=== PATIENT | male | born 1935 | race Caucasian/White ===

== ENCOUNTER 2016-08-01 13:40 | Emergency (ER) | payer OTHER ==
[~2016-08-01] VITALS: Ht 172.7 cm; Wt 97.5 kg
[~2016-08-01 13:40] MED LIST: ATIVAN0.5 M1 PO; ATIVAN0.5 MG PO; BENICAR HCT 201 EACH PO; BUSPAR PO; BUSPAR30 MG; BUSPIRONE HCL10 MG PO; CARDIO TAB PO; CARDIO TABS; CITRUCEL CAPLET1 TA1 PO; CO Q-10150 MG PO; CVS FISH OIL 11 EAC3 PO; ENDODAN PO; GLUCOSAMINE-MS1 EAC3 PO; HYDROCODON-ACE1 EA11 PO; HYDROCODON-ACE1 EAC5 PO; HYDROCODON-ACE1 EACH PO; IBUPROFEN 200200 M1 PO; LOSARTAN-HCTZ1 EACH PO; NORCO 10-325 T1 EACH PO; SERTRALINE HCL100 MG PO; SIMVASTATIN40 MG PO; VENLAFAXIN75 MG/1 T2 PO; VERAPAMIL HCL120 M1 PO; VERAPAMIL HCL40 MG PO; VERAPAMIL2.5 MG/1 M
[2016-08-01 17:00] LABS: URINE BILIRUBIN NEGATIVE (Negative); URINE BLOOD 2+ (Negative); URINE COLOR YELLOW; URINE GLUCOSE-RANDOM* NEGATIVE (Negative); URINE KETONES NEGATIVE (Negative); URINE NITRITE NEGATIVE (Negative); URINE PROTEIN (DIPSTICK) TRACE (Negative); URINE SPECIFIC GRAVITY 1.025 (1.003-1.035); URINE UROBILINOGEN 0.2 E.U./dl (0.2-1.0)
[2016-08-01 17:04] LABS: SQUAMOUS 4-10 Moderate /LPF (0-3)
[2016-08-01 17:05] LABS: BACTERIA None Seen /HPF (None Seen); CASTS None Seen /LPF (None Seen); CRYSTALS None Seen /LPF (None Seen); URINE RBC 3-10 Few /HPF (0-2); URINE WBC 0-5 Rare /HPF (0-5)
[2016-08-01 17:11] LABS: AMP/METHAMP Negative (Negative); BARBITURATES Negative (Negative); BENZODIAZEPINES Negative (Negative); COCAINE Negative (Negative); METHADONE Negative (Negative); OPIATES Negative (Negative); PCP Negative (Negative); THC Negative (Negative)
== END 2016-08-01 17:43 | disposition home or self-care (01) ==
LOC: ER 13:40
PROVIDERS: Physician Assistant
DX: F41.0 Panic disorder [episodic paroxysmal anxiety] (principal); Z87.891 Personal history of nicotine dependence

== ENCOUNTER 2016-11-27 21:29 | Emergency (ER) | payer OTHER ==
[~2016-11-27] VITALS: Ht 180.3 cm; Wt 158.8 kg
--- NOTE | ~2016-11-27 | EKG ---
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
[2016-11-27 22:26] LABS: ABSOLUTE NEUTROPHILS 8.7 thou/uL (1.4-8.2); BASOPHILS 0.3 % (0.0-2.0); EOSINOPHILS 0.3 % (0.0-3.0); HEMATOCRIT 46.9 % (42.0-52.0); HEMOGLOBIN 15.8 gm/dL (14.0-18.0); LYMPHOCYTES 14.2 % (24.0-44.0); MANUAL DIFF NO; MCH 31.1 pg (26.0-34.0); MCHC 33.7 g/dL (28.0-37.0); MCV 92.3 fL (80.0-100.0); MONOCYTES 5.7 % (1.0-8.0); PLATELET COUNT 185 thou/uL (150-400); POLYS 79.5 % (36.0-66.0); RBC 5.09 mil/uL (4.50-6.00); RDW 14.5 % (10.5-14.5)
[2016-11-27 22:44] LABS: ALBUMIN 3.6 g/dL (3.4-5.0); ALKALINE PHOSPHATASE 110 U/L (46-116); BUN 16 mg/dL (7-18); CALCIUM 9.5 mg/dL (8.5-10.1); CO2 28 mmol/L (21-32); GLUCOSE 143 mg/dL (74-106); SGOT 26 U/L (15-37); SGPT 28 U/L (30-65); TOTAL BILIRUBIN 0.6 mg/dL (<0.1-1.0); TOTAL PROTEIN 7.8 g/dL (6.4-8.2); TROPONIN-I < 0.04 ng/mL (<0.04-0.07)
[2016-11-27 22:58] LABS: ANION GAP 7 mmol/L (7-16); CHLORIDE 101 mmol/L (98-107); POTASSIUM 3.4 mmol/L (3.5-5.1); SODIUM 136 mmol/L (136-145)
== END 2016-11-28 00:07 | disposition home or self-care (01) ==
LOC: ER 21:29
PROVIDERS: Nurse Practitioner Family
DX: F41.0 Panic disorder [episodic paroxysmal anxiety] (principal); F17.210 Nicotine dependence, cigarettes, uncomplicated

== ENCOUNTER → 2018-08-01 | Outpatient (CLI) | payer OTHER | LOC: CAT 09:10 | PROVIDERS: Internal Medicine Cardiovascular Disease | DX: I71.4 Abdominal aortic aneurysm, without rupture (principal); M47.816 Spondylosis without myelopathy or radiculopathy, lumbar region; J98.11 Atelectasis ==

== ENCOUNTER → 2018-08-14 | Outpatient (CLI) | payer OTHER ==
[~2018-08-14] VITALS: Ht 182.9 cm; Wt 117.9 kg
[~2018-08-14] MED LIST changes: +ASPIR 8181 MG PO; +CO Q-1075 MG PO; +COQ-10100 MG PO; +CYMBALTA60 MG PO; +FISH OIL 1,001000 M2 PO; +HYZAAR 50-12.51 EACH PO; +LIPITOR 20 MG T20 M1 PO; +PAXIL40 MG PO; +PRILOSEC OTC20 MG PO; +TRAMADOL 50 MG50 MG PO; +TUMS PO; +VENTOLIN HFA 1818 GM INH; +VITAMIN D31000 UNIT PO; +VITAMIN D3400 UNIT PO
--- NOTE | ~2018-08-14 | HC ---
[facility] [place] [address] CONSULTATION Name: ROMY BAGLEY Room #: REG YAYA Schwartz.#: [id number] Admission: 08/14/18 ������������������ Attend Phys: Sam Rutherford MD, Discharge: ������������������ Date of : 33 Report #: [id number] THIS REPORT FOR: //name// CC: Juan Diego Rutherford DATE OF SERVICE: 08/14/2018 We were asked by Dr. Medel to see the patient. The patient is an 82-year-old with an infrarenal abdominal aortic aneurysm that is approaching 6 cm. This has been followed for years. 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 This aneurysm has been asymptomatic. PERSONAL MEDICAL HISTORY: Significant for hypertension, hyperlipidemia, chronic low back pain, possible CVA and the patient is status post lumbar fusion in the past. SOCIAL HISTORY: The patient is , with 3 children. No tobacco, no alcohol. FAMILY HISTORY: Mother with Alzheimer's in her 80s. Father from the abdominal aortic aneurysm. ALLERGIES: None. MEDICATIONS: At home are Cymbalta, Paxil, Hyzaar, Ultram, Ventolin, Reclast, lorazepam, atorvastatin, vitamin D, aspirin, fish oil, CoQ10. REVIEW OF SYSTEMS: GENERAL: The patient denies chronic medical problems. CONSTITUTIONAL: No fever or chills. EYES: No eye pain, visual change. RESPIRATORY: Occasional dyspnea related to anxiety. No cough. CARDIAC: Denies chest pain. GASTROINTESTINAL: No abdominal pain, nausea, vomiting. MUSCULOSKELETAL: Chronic low back pain. SKIN: No rash or infection. NEUROLOGIC: No motor or sensory dysfunction. PHYSICAL EXAMINATION: GENERAL: The patient is lying in bed after his arteriogram. VITAL SIGNS: Blood pressure 97/59, heart rate 71, respiratory rate 16. HEENT: No scleral icterus, no arcus, normocephalic. Pupils are round and equal. No oropharyngeal issues seen. [facility] [address] [place] [address] CONSULTATION Name: ROMY BAGLEY [place] Room #: REG [facility].#: [id number] Admission: 08/14/18 ������������������ Attend Phys: Sam Rutherford MD, Discharge: ������������������ Date of : 33 Report #: [id number] NECK: No mass, no bruit. CHEST: Clear. HEART: Rhythm regular. ABDOMEN: Soft. EXTREMITIES: No clubbing, cyanosis or edema. 2+ femoral pulses bilaterally. NEUROLOGIC: No obvious motor or sensory dysfunction. MUSCULOSKELETAL: No asymmetry or deformity. I reviewed the arteriographic findings with the patient and also discussed the risks and details of stent graft implant. These include but not limited to bleeding, infection, anesthesia risks, and of course problems with the graft itself, the need for followup. Visualization was stressed. Open implant was compared and contrasted with stent graft implant. The patient understands all of this and wishes to proceed. We will schedule the patient for elective stent graft implant with Dr. Medel. Thank you for the consult. ��������������������������������������������� ���������������������������������������� By: ��������������������������������������������� 0945 0309 Mihir Hastings MD /nt
[2018-08-14 07:39] VITALS: BP 130/84
[2018-08-14 07:46] LABS: HEMOGLOBIN 15.8 gm/dL (14.0-18.0); MCH 31.6 pg (26.0-34.0); MCHC 33.6 g/dL (28.0-37.0); MCV 93.9 fL (80.0-100.0); RBC 5.01 mil/uL (4.50-6.00); RDW 14.3 % (10.5-14.5); WBC 9.4 thou/uL (4.0-11.0)
[2018-08-14 07:59] LABS: CALCIUM 9.1 mg/dL (8.5-10.1); CREATININE 1.1 mg/dL (0.7-1.3)
--- NOTE | 2018-08-14 09:56 | EKG ---
[place] [address] [facility] [place] [address] ELECTROCARDIOGRAM REPORT Name: ROMY BAGLEY Room #: REG [facility]#: [id number] ������������������ Admission: 08/14/18 ������������������ Attend Phys: Sam Rutherford MD, Discharge: ������������������ Date of : 33 Report #: [id number] ����������������������������������������������������������������� [id number] THIS REPORT FOR: //name// [facility] Test Date: 2018-08-14 Test Time: 07:28:43 Pat Name: ROMY BAGLEY Department: Room: Gender: M Microscopist: MARIJA : 1935 Requested By: Sam Rutherford Order Number: [id number] MD: Levy Alcala Measurements Intervals [place] Rate: 72 P: 68 RI: 179 QRS: 54 QRSD: 93 T: 73 QT: 421 QTc: 461 Interpretive Statements Sinus rhythm Nonspecific ST segment abnormality Compared to ECG 11/27/2016 22:16:33 No significant change was found Electronically Signed On 08-14-2018 9:55:55 CDT by Levy Alcala [email or web address] ��������������������������������������������� <ELECTRONICALLY SIGNED> ���������������������������������������� By: Levy Alcala MD, [facility] ��������������������������������������������� 08/14/1855 7 7 Levy Alcala MD, [facility] /EPI
--- NOTE | 2018-08-19 12:08 | CATHLAB ---
[facility] [address] [place] [address] INVASIVE PROCEDURE REPORT Name: ROMY BAGLEY Room #: REG [facility] [id number] ������������� Admission: 08/14/18 ������������� Attend Phys: Sam Rutherford, Discharge: ��� ������������� ��� Date of : 31 Date of Service: 08/19/18 1208 �� Report #: [id number] �������� ��������������������������������������������[id number] THIS REPORT FOR: //name// APPROVED REPORT Study performed: 08/14/2018 07:41:14 Patient Details Patient Status: Out-Patient Room #: The patient is a 82 year-old male Event Personnel Sam Rutherford Patrol Sergeant, Rex Mejía RN, Zeny, Marcy Monitor, Rodney Kahn RTR Scrub, Agustín Jackson RTR X-Ray Tech Procedures Performed Art Access - R femoral artery* 42519 Initial Mod Sed Same Phys/QHP Gr5y 208988 60310 Mod Sed Same Phys/QHP Ea 956652 Left Heart Cath w/or w/o Coronaries [id number] [facility] Hemostasis with Manual pressure Indication Chest pain Procedure Narrative The patient was brought electively to the Cardiac Catheterization Laboratory and was prepped and draped in a sterile manner. The Right Groin^ was infiltrated with subcutaneous anesthesia. A PINNACLE 6FR Sheath #[id number] sheath was inserted into the RFA^. Coronary angiography was performed using coronary diagnostic catheters. The right coronary system was accessed and visualized with a JR 4 catheter. The left coronary system was accessed and visualized with a JL 4 catheter. The left ventricle was accessed and visualized with a Pigtail catheter. Left ventriculogram was performed in GOMEZ projection. Hemostasis was obtained with manual pressure following sheath removal without any complications. The patient tolerated the procedure well and there were no complications associated with the procedure. There was no hematoma. Intraoperative Conscious Sedation Sedation start time: 08:29 Case end Time: 09:52 Fentanyl 250 mcg Versed 3 mg [facility] [place] [address] INVASIVE PROCEDURE REPORT Name: ROMY BAGLEY Room #: REG [facility]#: [id number] ������������� Admission: 08/14/18 ������������� Attend Phys: Sam Rutherford, Discharge: ��� ������������� ��� Date of : 31 Date of Service: 08/19/18 1208 �� Report #: [id number] �������� ��������������������������������������������[id number] Fluoro Time: 2.33 minutes Dose: DAP 4917.00 cGycm2 542 mGy Contrast Type and Amount: Visipaque 160 ml Hemodynamics The aortic pressure is 124/71 mmHg with a mean of 96 mmHg. The left ventricular pressure is 121/15 mmHg with a mean of mmHg. Conclusion #1 normal left ventricular size and systolic function EF 60% #2 long left main free of disease giving rise to LAD and circumflex #3 the LAD is mildly disease at type I stops short of the apex no significant occlusive disease #4 nondominant circumflex with mild irregularity #5 large dominant right coronary artery which is widely patent. Recommendations and plan: Continue aggressive risk factor modification. No indication for coronary intervention. ��������������������������������������������� <ELECTRONICALLY SIGNED> ���������������������������������������� By: Sam Rutherford MD, [facility] ��������������������������������������������� 08/19/18 1208 1208 1208 Sam Rutherford MD, FAC /INF
== END | disposition home or self-care (01) ==
LOC: CATH 06:49
PROVIDERS: Internal Medicine Cardiovascular Disease
DX: I25.10 Atherosclerotic heart disease of native coronary artery without angina pectoris (principal); K55.1 Chronic vascular disorders of intestine; I70.1 Atherosclerosis of renal artery; I71.4 Abdominal aortic aneurysm, without rupture; I10 Essential (primary) hypertension; E78.00 Pure hypercholesterolemia, unspecified; E78.5 Hyperlipidemia, unspecified; M54.5 Low back pain; G89.29 Other chronic pain; F41.9 Anxiety disorder, unspecified; E66.09 Other obesity due to excess calories; Z79.899 Other long term (current) drug therapy; Z79.82 Long term (current) use of aspirin; Z98.41 Cataract extraction status, right eye; Z98.42 Cataract extraction status, left eye; Z82.49 Family history of ischemic heart disease and other diseases of the circulatory system; Z98.890 Other specified postprocedural states; Z86.73 Personal history of transient ischemic attack (TIA), and cerebral infarction without residual deficits

== ENCOUNTER 2018-08-30 05:42 | Inpatient (IN) | payer OTHER ==
[2018-08-22 11:01] LABS: ABSOLUTE NEUTROPHILS 4.4 thou/uL (1.4-8.2); BASOPHILS 0.7 % (0.0-2.0); EOSINOPHILS 1.4 % (0.0-3.0); HEMATOCRIT 45.2 % (42.0-52.0); HEMOGLOBIN 15.3 gm/dL (14.0-18.0); LYMPHOCYTES 30.3 % (24.0-44.0); MCH 31.7 pg (26.0-34.0); MCHC 33.7 g/dL (28.0-37.0); MCV 94.1 fL (80.0-100.0); MONOCYTES 8.7 % (1.0-8.0); PLATELET COUNT 196 thou/uL (150-400); POLYS 58.9 % (36.0-66.0); RBC 4.81 mil/uL (4.50-6.00); RDW 14.2 % (10.5-14.5); WBC 7.5 thou/uL (4.0-11.0)
[2018-08-22 11:08] LABS: URINE BILIRUBIN NEGATIVE (Negative); URINE BLOOD TRACE (Negative); URINE CLARITY CLEAR; URINE COLOR YELLOW; URINE GLUCOSE-RANDOM* NEGATIVE (Negative); URINE KETONES NEGATIVE (Negative); URINE LEUKOCYTES-REFLEX NEGATIVE (Negative); URINE NITRITE-REFLEX NEGATIVE (Negative); URINE PROTEIN (DIPSTICK) NEGATIVE (Negative); URINE UROBILINOGEN 0.2 E.U./dl (0.2-1.0)
[2018-08-22 11:15] LABS: ALBUMIN 3.3 g/dL (3.4-5.0); CALCIUM 9.2 mg/dL (8.5-10.1); POTASSIUM 4.1 mmol/L (3.5-5.1); TOTAL BILIRUBIN 0.3 mg/dL (<0.1-1.0)
[2018-08-22 11:16] LABS: APTT 26.9 Seconds (24.5-32.8); PROTIME 10.1 Seconds (9.3-11.4)
--- NOTE | 2018-08-22 13:03 | EKG ---
[address] [address] ELECTROCARDIOGRAM REPORT Name: ROMY BAGLEY Room #: PRE [facility]#: [id number] ������������������ Admission: ������������������ Attend Phys: Mihir Hastings MD Discharge: ������������������ Date of : 33 Report #: [id number] ����������������������������������������������������������������� [id number] THIS REPORT FOR: //name// [facility] Test Date: 2018-08-22 Test Time: 10:27:11 Pat Name: ROMY BAGLEY Department: Room: Gender: High Lighter: Serg DALLAS : 1935 Requested By: Mihir Hastings Order Number: [id number] MD: Levy Alcala Measurements Intervals [place] Rate: 75 P: -27 PA: 202 QRS: 55 QRSD: 89 T: 50 QT: 393 QTc: 439 Interpretive Statements Sinus rhythm Atrial premature complex Compared to ECG 08/14/2018 07:28:43 Atrial premature complex(es) now present Electronically Signed On 08-22-2018 13:03:24 CDT by Levy Alcala [email or web address] ��������������������������������������������� <ELECTRONICALLY SIGNED> ���������������������������������������� By: Levy Alcala MD, [facility] ��������������������������������������������� 08/22/18 1303 1027 26 Levy Alcala MD, FACC /EPI
[2018-08-30] VITALS (19 sets, daily range): BP systolic 94–127; BP diastolic 44–74
[~2018-08-30] VITALS: Ht 175.3 cm; Wt 115.7 kg
--- NOTE | ~2018-08-30 | O ---
[facility] [place] [address] OPERATIVE REPORT Name: ROMY BAGLEY Room #: 150-4 ADM IN M.R.#: [id number] Admission: 08/30/18 ������������������ Attend Phys: Mihir Hastings MD Discharge: ������������������ Date of : 33 Report #: [id number] THIS REPORT FOR: //name// CC: Juan Diego Hastings DATE OF SERVICE: 08/30/2018 PREOPERATIVE DIAGNOSIS: Abdominal aortic aneurysm. PREOPERATIVE DIAGNOSIS: Abdominal aortic aneurysm. OPERATION: Implant of stent graft for infrarenal abdominal aortic aneurysm with intraoperative arteriograms. SURGEON: Dr. Mihir Hastings and DR. Agusto Medel. GUIDANCE ADVISER: GILDA Garner. ANESTHESIA: General. INDICATIONS: The patient is an 82-year-old with an infrarenal abdominal aortic aneurysm that is approaching 6 cm in size. The patient has two left renal arteries, but there appears to be satisfactory neck for stent graft implant and the distal anatomy is favorable as well. FINDINGS AND TECHNIQUE: After general anesthesia was established, incisions were made in each groin to expose the common femoral artery. A 10,000 units of heparin were given. On each side, the arterial needle was placed followed by J wire and 5-Greek introducer. Through this, the long J wire, Berenstein catheter and then Ivonne wire was placed. On each side, the Ivonne wire was used to place the large [place] introducer through a femoral artery cutdown on the right side. A 16-Greek sheath was placed over the dilator and on the left side, a 12-Greek sheath was placed. It should be mentioned that 10,000 units of heparin were given at the outset and 1000 units was given at the hour richard. Through the right side, the 23 mm x 14.5 mm x 14 cm trunk was placed. Through the left side, a visceral catheter was placed in the lowest renal artery and this was used as our proximal landing zone marker. The stent was opened and we felt that it was in satisfactory condition. The proximal end of the stent was deployed, such that the contralateral gate could be accessed through the left side. Once the gate was accessed, good position was ascertained with the pigtail spin technique. [facility] [address] [place] [address] OPERATIVE REPORT Name: ROMY BAGLEY Room #: 150-4 ADM IN M.R.#: [id number] Admission: 08/30/18 ������������������ Attend Phys: Mihir Hastings MD Discharge: ������������������ Date of : 33 Report #: [id number] Through the 12-Greek introducer on the left, a sheath shot was taken with contrast to demonstrate the takeoff of the hypogastric arteries. With this information, we selected a 16 mm x 9.5 cm contralateral limb and this was deployed. On the right side, the sheath shot was taken as well to illustrate the hypogastric artery takeoff and using this information, we finished deploying the main component, moving it up slightly as we proceeded to land just above the hypogastric takeoff. With both components deployed, then the [place] balloon was used to fully dilate the landing zone proximally and the landing zone for the contralateral gate and component and then the rest of the main component. An arteriogram was taken through the pigtail catheter and this showed good position of the graft, but there was a small type 1 leak. This led us to place a 23 mm x 3.3 cm cuff. This was landed just proximal to the initial graft, but below the renal artery. Once again, the compliant balloon was used to fully deploy the cuff and to iron out any pleat in the proximal component. A final arteriogram was taken with the pigtail catheter and this showed no evidence of leak and good position of the graft. With this information, the pigtail catheter was removed. Dilators were replaced stiff wires into the sheaths on each side. Sheaths and dilators were removed and then the guidewires were removed. No drop in pressure was seen. On each side, the arteriotomy was closed with interrupted Prolene. Once this was done, flow was reestablished and protamine was given to reverse the heparin. Hemostasis was ascertained and the wounds were closed in layers. The patient was taken to the recovery area in good position. Strong dorsalis pedis pulses were palpable before this transfer. All counts reported as correct. ��������������������������������������������� ���������������������������������������� By: ��������������������������������������������� 1640 1727 Mihir Hastings MD /lorena
--- NOTE | ~2018-08-30 | HC ---
[facility] [place] [address] CONSULTATION Name: ROMY BAGLEY Room #: 216-P [facility] IN M.R.#: [id number] Admission: 08/30/18 ������������������ Attend Phys: Mihir Hastings MD Discharge: 09/01/18 ������������������ Date of : 33 Report #: [id number] THIS REPORT FOR: //name// CC: Juan Diego Hastings DATE OF SERVICE: 09/01/2018 HISTORY OF PRESENT ILLNESS: The patient is an 82-year-old white male with an infrarenal abdominal aortic aneurysm approximately 6 cm. He was admitted to [facility] and underwent stent grafting on 08/30/2018. The patient has a prior history of cerebrovascular accident 5-6 years ago with some residual left-sided weakness. He is a premorbid front-wheeled versus 4-wheeled walker ambulator. He has had some problems noted with gait and balance issues and is needing more assistance as far as ADLs and self care than he did previously. With the functional decline, we have been consulted regarding rehabilitation issues. PAST MEDICAL HISTORY: Includes hypertension, elevated lipids, exogenous obesity, bilateral carotid surgery, obstructive sleep apnea and there is note of cerebrovascular accident 5-6 years ago with some residual left-sided weakness. He indicated the left-sided weakness was more involving the face actually than the arm or leg. He has also had a prior lumbar fusion on 12/20/2015. MEDICATIONS: Please see the full medication listing. FAMILY HISTORY: Mother had Alzheimer's. Father actually from an abdominal aortic aneurysm. ALLERGIES: None. SOCIAL HISTORY: , lives with . Single story house, used a front-wheeled walker, 4 steps to get in. He also has a front-wheeled walker. just had gallbladder surgery approximately a week ago and would have difficulty assisting him. She is unable to get him up if he has a fall. ALLERGIES: No known drug allergies. REVIEW OF SYSTEMS: He notes with his left facial weakness, he is unable to whistle. Denies any problems swallowing, however. He indicates that is not Swift's palsy. He denies any fever or chills. No chest pain, shortness of breath or abdominal discomfort. No focal extremity pain complaints. He has had multiple falls in the shower prior to admission. He attributed this to the soap and slipperiness while in the shower. PHYSICAL EXAMINATION: [facility] [address] [place] [address] CONSULTATION Name: YUDIROMY E Room #: 216-P DIS IN M.R.#: [id number] Admission: 08/30/18 ������������������ Attend Phys: Mihir Hastings MD Discharge: 09/01/18 ������������������ Date of : 33 Report #: [id number] GENERAL: An 82-year-old white male in no obvious distress. He has exogenous obesity. VITAL SIGNS: His temperature is 97.5, pulse 82, respirations 20, and blood pressure 128/63. NEUROLOGIC: He is alert, pleasant. He is not on any oxygen. Facies revealed a left facial droop with depressed left nasolabial fold. EOMs are full. No obvious visual field neglect to confrontation. He is able to verbalize quite well. On evaluation of his groin. The areas are dressed from the stenting. He has functional range of motion of both upper extremities. Strength is a grade 4/5. Coordination is reasonably good with [id number]-[id number] and fine finger dexterity in his lower extremities. There is no calf swelling, functional range of motion, strength is grade 4+ to 4/5. DTRs are trace. There is no clonus. Functionally, he is mod assist with sit to stand, ambulated 15 feet mod assist with a front-wheeled walker. ASSESSMENT: An 82-year-old white male with the following problem list: 1. Medical complexity with generalized debilitation. 2. Infrarenal abdominal aortic aneurysm, status post stent grafting 08/30/2018. 3. 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 4. Functional mobility and activities of daily living decline. 5. Lumbar fusion, 2016. 6. Exogenous obesity. 7. Hypertension. 8. Elevated lipids. 9. Obstructive sleep apnea. 10. Bilateral carotid surgery. PLAN: The patient is a candidate for an acute in-hospital inpatient rehabilitation stay. Complained on transfer to the [address] [place] [address] acute inpatient rehab [facility] when medically cleared and bed available. He does have the multiple medical comorbidities as noted above. He has tolerance for therapies and has appropriate discharge goals back to the home setting. ADDENDUM: His height is 5 feet 9 and his weight, last recorded was 255 pounds. ��������������������������������������������� ���������������������������������������� By: ��������������������������������������������� 1450 0139 Agusto Novoa MD /nt
--- NOTE | 2018-08-30 19:25 | NUR ---
1755 ASSUMED PT CARE, ARRIVED FROM PACU VIA RN AND TRANSPORT. PT A/OX4, VITAL SIGNS STABLE, 2LNC, NO GTTS, ARTLINE SLIGHTLY POSITIONAL, ARM BOARD APPLIED, SEEMS TO BE FUNCTIONING BETTER. ALL DRESSING C/D/I. ATTEMPTED TO LOCATE HOLLY IN WAITING ROOM, PT SAID SHE PROBABLY WENT TO EAT. WILL MONITOR CLOSELY.
[2018-08-31] VITALS (35 sets, daily range): BP systolic 83–120; BP diastolic 38–67
[2018-08-31 06:30] LABS: HEMATOCRIT 37.6 % (42.0-52.0); HEMOGLOBIN 12.6 gm/dL (14.0-18.0); MCH 31.6 pg (26.0-34.0); MCHC 33.4 g/dL (28.0-37.0); MCV 94.7 fL (80.0-100.0); RBC 3.97 mil/uL (4.50-6.00); RDW 14.2 % (10.5-14.5); WBC 11.4 thou/uL (4.0-11.0)
[2018-08-31 06:38] LABS: CALCIUM 7.9 mg/dL (8.5-10.1); CREATININE 0.9 mg/dL (0.7-1.3); POTASSIUM 4.5 mmol/L (3.5-5.1)
--- NOTE | 2018-08-31 07:38 | NUR ---
PT RESTED WELL, NO ACUTE CHANGES. PAIN WELL CONTROLLED, BILATERAL GROIN WITH DRESSING C/D/I, NO HEMATOMA OR S/S BLEEDING. FISHER WITH ADEQUATE OUTPUT. PT ON 2L O2 BY NASAL CANNULA, MAINTAINING SATS >95%.
--- NOTE | 2018-08-31 17:00 | NUR ---
PATIENT HAS BEEN ALERT AND ORIENTED, FORGETFUL AND CONFUSED BUT EASILY REORIENTABLE. VITALS STABLE AND DENIES PAIN. A-LINE AND FISHER CATH D'CD EARLIER TODAY. UP TO THE CHAIR WITH WALKER AND GAIT BELT AND MOD ASSISTANCE. TOLERATING DIET WELL W/O NAUSEA. BILATERAL GROIN SITES WITH DRESSINGS C/D/I. ORDERS RECEIVED TO TRANSFER TO CCU. PATIENT TRANSFERRED TO RM 216, NO BELONGINGS WITH PATIENT. PATIENT'S SPOUSE NOTIFIED VIA TELEPHONE.
--- NOTE | 2018-08-31 17:35 | NUR ---
ASSUMED CARE OF PT AROUND 1630. PT ALERT AND ORIENTED TIMES FOUR, WITH PERIODS OF CONFUSION. VSS, SR ON TELE. PT GROIN SITES SOFT C/D/I. PT DENIES PAIN/SOA. PT UP SITTING IN THE CHAIR. POSSIBLE PLAN FOR DISCHARGE HOME TOMORROW. PT PROGRESSING TOWRADS POC GOALS.
[2018-09-01 05:11] VITALS: BP 146/71
--- NOTE | 2018-09-01 05:43 | NUR ---
ASSUMED PT CARE AT 1900 WITH NO SIGN OF DISTRESS NOTED IN PT. PT IS ALERT BUT CONFUSED. NO FAMILY AT BEDSIDE. ASSESSMENT COMPLETED AND CHARTED. PT IS CONFUSED FOR MOST OF THE NIGHT. SCHEFDULED MEDS ADMINISTERED TO PT. PT TOLERATED PO INTAKE, DENIES ANY FURTHER NEEDS AT THIS TIME.
[2018-09-01 08:08] VITALS: BP 128/63
--- NOTE | 2018-09-01 14:10 | NUR ---
Case opened to follow for dc planning. Filter Bed Placer visited with the pt and spouse at bedside. The pt lives at home with his spouse. They have 4 steps to enter their home then everything is on the main level. Pt no longer drives and uses a rwalker for gait. He is normally indep with transfers and gait within the home using the rwalker. They both acknowledge increased weakness and report that the pt has had several falls recently at home. Pt has rt facial droop and his reports that he had a minor stroke 5-6 years go but the pt reports he noticed it seemed worse about 6 months ago. Therapy evals and care team recommendations noted for acute rehab eval. Options for rehab discussed including [facility], [facility] or [facility]. Both are receptive and prefer to go to [facility] if accepted. Case discussed with [facility]. [facility] may have a bed available this afternoon. Will follow.
--- NOTE | 2018-09-01 16:52 | NUR ---
ASSESSMENT DOCUMENTED. PT ALERT AND ORIENTED. VSS. UP IN THE CHAIR THIS AM. EVALUATED BY PT AND OT. ORDERS GIVEN TO TRANSFER PT TO [address] [place] [address] REHAB. NOTIFIED. REPORT CALLED IN TO OLIVIA BUSTAMANTE. PT LEFT THE UNIT ACCOMPANIED BY THE .
== END 2018-09-01 16:54 | DRG 269 ==
LOC: TBA 05:42 → ICU 05:42 → PRE 05:59 → ICU 17:34 → 2N 08-31 16:56 → ENTRNSPT 09-01 16:28 → 2N 09-01 16:54
PROVIDERS: Physician Assistant; ADMIT Surgery Vascular Surgery
PROC: B4181ZZ Fluoroscopy of Bilateral Renal Arteries using Low Osmolar Contrast (ICD-10-PCS; principal; 2018-08-30)
PROC: 04V03DZ Restriction of Abdominal Aorta with Intraluminal Device, Percutaneous Approach (ICD-10-PCS; principal; 2018-08-30)
DX: I71.4 Abdominal aortic aneurysm, without rupture (principal); I69.354 Hemiplegia and hemiparesis following cerebral infarction affecting left non-dominant side; G47.33 Obstructive sleep apnea (adult) (pediatric); I10 Essential (primary) hypertension; E66.09 Other obesity due to excess calories; Z68.37 Body mass index [BMI] 37.0-37.9, adult; Z81.8 Family history of other mental and behavioral disorders; Z82.49 Family history of ischemic heart disease and other diseases of the circulatory system; Z79.899 Other long term (current) drug therapy
CPT/HCPCS: 10078; 10081; 47375; 48888; 50010; 50101; 50386; 50455; 51078; 51751; 54118; 56524; 56526; 56531; 56668; 56760; 57093; 62110; 62900; 65040; 70005

== ENCOUNTER 2018-09-01 15:04 | Inpatient (IN) | payer OTHER ==
[~2018-09-01] VITALS: Ht 182.9 cm; Wt 113.2 kg
--- NOTE | 2018-09-01 20:48 | NUR ---
REPORT RECIEVED FROM ACUTE CARE RN. ASSUMED CARE OF PATIENT AT APPROX 1700. PATIENT A/O X4. CHIGNIK LAGOON. VSS. C/O CHRONIC BACK PAIN, STATED HE DID NOT WANT PAIN MEDS AT TIME OF ASSESSEMENT, RATED PAIN 5/10, SAID THIS WAS TOLERABLE. PATIENT ADMISSION ASSESSMENT COMPLETED. MEDICATION ORDERS STARTED PER PHARMACY. ADMISSION ORDERS RECEIVED. PATIENT TRANSFERED TO CHAIR X2 PERSON ASSIST R/T FEAR OF FALLING & PAIN WITH MOVEMENT. PATIENT SAT UP IN RECLINER, STATED HE MUST SLEEP IN RECLINER R/T CHRONIC BACK PAIN AT HS. SAT UP FOR MEAL. NO ISSUES WITH SWALLOWING NOTED. GROIN DRESSINGS INTACT, CLEAN AND DRY. PATIENT DENIES PAIN FROM INCISION SITES. FALL PRECAUTIONS IN PLACE. PATIENT HAD NOT YET SIGNED CONSENTS AT SHIFT CHANGE, NIGHT RN NOTIFIED. CONSULTS YET TO BE CALLED, NIGHT RN AWARE. PATIENT ROUNDED ON HOURLY. RESTING IN RECLINER AT CHANGE OF SHIFT.
--- NOTE | 2018-09-02 04:37 | NUR ---
ASSUMED CARE AT 1900, ASSESSMENT COMPLETED. PT REPORTS CHRONIC PAIN IN BACK, UNABLE TO TOLERATE SLEEPING IN THE BED, REMAINS IN RECLINER OVERNIGHT; GIVEN PAIN PILL AT HS, PT REQUESTED ONLY THE 50 MG TRAMADOL DESPITE RATING PAIN AT AN 8. DENIED NAUSEA OR SOB. USING URINAL AT BEDSIDE OVERNIGHT, CALLING FOR HELP APPROPRIATELY, FALL PRECAUTIONS IN PLACE. GROIN DRESSINGS C/D/I. NO OTHER CONCERNS, WILL CONTINUE TO MONITOR.
[2018-09-02 06:50] LABS: HEMOGLOBIN 12.8 gm/dL (14.0-18.0); MCHC 33.8 g/dL (28.0-37.0); MCV 94.6 fL (80.0-100.0); RBC 4.02 mil/uL (4.50-6.00); RDW 14.1 % (10.5-14.5); WBC 9.6 thou/uL (4.0-11.0)
[2018-09-02 07:04] LABS: CALCIUM 7.9 mg/dL (8.5-10.1); CREATININE 0.7 mg/dL (0.7-1.3); POTASSIUM 3.9 mmol/L (3.5-5.1)
[2018-09-02 09:24] VITALS: BP 123/57
--- NOTE | 2018-09-02 13:33 | NUR ---
TOWARDS POC PT A/O X4, VSS, AFEBRILE, DENIES PAIN. NO NV, NO SOA. PT/OT WORK WITH HIM. NO CONCERNS VOICED WILL CONTINUE TO MONITOR.
[2018-09-02 20:00] VITALS: BP 141/75
--- NOTE | 2018-09-02 21:30 | NUR ---
UP TO TOILET WITH GAIT BELT CONTACT GUARD ASSIST TO STAND, WALKER, AND STANDBY ASSIST TO WALK. BRIEF SATURATED, PANTS MOIST ENOUGH TO BE WASHED. PATIENT IS GENERALLY COLD MOST OF THE TIME AND WANTS TO WEAR HIS LONG SLEEVES ALL NIGHT. VOIDING A SMALL AMOUNT YELLOW URINE ON TOILET. PLEASANT
--- NOTE | 2018-09-03 02:00 | NUR ---
TO BED AT THIS TIME WEARING BRIEF BY CHOICE DUE TO DIFFICULTY USING URINAL IN CURRENT SWOLLEN STATE. PATIENT INFORMED THAT LASIX IS ORDERED FOR THIS AM. LIGHT OFF AND TV ON HE REQUESTS, SHOWN ALL 3 CALL BUTTONS, AND INFORMED THAT I WILL CONTINUE HOURLY ROUNDS.
[2018-09-03 09:16] VITALS: BP 131/62
--- NOTE | 2018-09-03 10:33 | NUR ---
ASSUMED CARE OF PT AT 0715. PT IS A&OX4 AND VITAL SIGNS ARE STABLE. PT REPORTS NO PAIN AT THIS TIME AND PARTICIPATED IN SCHEDULED THERAPIES. PT AMBULATES WITH 1 PERSON MOD ASSIST WITH GAIT BELT AND WALKER. PT ABLE TO TOLERATE MEDICAITONS WHOLE WITH THIN LIQUIDS. RESIDUAL LEFT SIDED WEAKNESS AND FACIAL DROOP FROM PAST CVA. FALL PRECAUTIONS IN PLACE AND NURSING WILL CONTINUE TO MONITOR.
[2018-09-03 19:10] VITALS: BP 114/49
--- NOTE | 2018-09-04 02:34 | NUR ---
UNAWARE OF HIS LARGE AMOUNT OF INCONTINENT URINE AT BEGINNING OF SHIFT. SINCE THEN HE HAS BEEN CONTINENT OF URINE AND NEEDS ASSIST TO STAND, STANDBY ASSIST TO BATHROOM ONCE UP WITH GAIT BELT AND WALKER. SITTING ON STOOL AT THIS TIME TO ATTEMPT BM WELL VOID, STATES UNABLE TO USE URINAL SUCCESSFULLY DUE TO SWOLLEN PERINEUM
[2018-09-04 08:35] VITALS: BP 115/67
--- NOTE | 2018-09-04 12:32 | NUR ---
chart review, pt up in room finishing lunch. intro to cm, dcp, and team meeting. pt a & o x 3 with some forgetfulness, pleasant and able to make his needs know. pt reported " live home with spouse, 3 steps to get home, 1 side hand rail. everything is on the main level. don't go to basement. drives, she set up medication in pill box and tells me when to take them. have walker, cane, grab bars and shower chair. independent with dressing and meals. cooks. had 3 falls in last 6month. only fell when i was turning and did not matter which way was turing i would fall. no hh or rehab in past"/pt. will cont following as needed for dc needs.
--- NOTE | 2018-09-04 15:44 | NUR ---
ASSUMED CARE OF PT AT 0730. PT IS A&OX4 AND VITAL SIGNS ARE STABLE. PT HAS FREQUENTLY TURNED OFF CHAIR ALARM HIMSELF AND TRANSFERED TO BATHROOM WITHOUT ASSISTANCE. PT HAS BEEN REEDUCATED ABOUT FALL RISK AND FALL PRECAUTIONS, CHAIR ALARM BOX MOVED TO BACK AND NURSING WILL CONTINUE FREQUENT CHECKS ON PT. PT TRANSFERS WITH 1 PERSON MOD ASSIST WITH GAIT BELT AND WALKER. TOLERATED MEDICATIONS THIS SHIFT WHOLE WITH THIN LIQUIDS. REPORTS NO PAIN AND WAS ABLE TO PARTICIPATE IN SCHEDULED THERAPIES TODAY. FALL PRECAUTIONS IN PLACE AND NURSING WILL CONTINUE TO MONITOR.
[2018-09-04 19:50] VITALS: BP 108/66
--- NOTE | 2018-09-04 23:50 | NUR ---
PT AMBULATING TO BATHROOM WITH ASSIST X1 AND IS TOLERATING FAIR. DENIES NEED FOR PAIN MEDICATION. RESTING COMFORTABLY IN CHAIR. NO NEEDS VOICED. CALL LIGHT WITHIN REACH. WILL CONTINUE TO PROVIDE FREQUENT OBSERVATION.
--- NOTE | 2018-09-05 05:20 | NUR ---
SLEEPING BEST WHILE IN RECLINER CHAIR. CHAIR ALARM ON FOR SAFETY, PATIENT HAS CALLED APPROPRIATELY A FEW TIMES NOW. HAD BM ON TOILET, AND VOIDS BETTER SITTING ON TOILET THAN TRYING TO USE URINAL, INCONTINENCE BRIEF SATURATED ONCE
[2018-09-05 06:24] LABS: CALCIUM 8.7 mg/dL (8.5-10.1); MAGNESIUM 1.7 mg/dL (1.8-2.4); POTASSIUM 3.7 mmol/L (3.5-5.1)
[2018-09-05 08:50] VITALS: BP 104/64
--- NOTE | 2018-09-05 14:18 | NUR ---
team meeting, recommendation: [facility] team, dc [facility]th with [facility] ( pt, ot, st, nursing). [facility]
--- NOTE | 2018-09-05 18:59 | NUR ---
ASSUMED CARE AT APPROX 0715. PATIENT A/O X3. [employer] [place] [employer] [place]. FORGETFUL. HYPOTENSIVE. PROVIDERS AWARE, MEDICATIONS ADJUSTED. EDEMA TO BLE, LEGS ELEVATED WITH PILLOWS WHILE IN RECLINER. PATIENT PROVIDED WITH SOFT TOUCH CALL LIGHT, FINDS REGULAR LIGHT HARD TO PRESS. HX OF BEING IMPULSIVE, ROUNDED ON FREQUENTLY. FALL PRECAUTIONS IN PLACE. PATIENT C/O CHRONIC BACK PAIN, DENIES NEED TO TAKE ORAL PAIN MEDS. PATIENT PARTICIPATED IN THERAPY. RESTING IN RECLINER. WILL CONTINUE TO MONITOR.
[2018-09-05 19:20] VITALS: BP 105/87
--- NOTE | 2018-09-06 03:40 | NUR ---
RESTING IN CHAIR WITH LEGS ELEVATED AND NOW IN CHAIR. CALLING FOR ASSIST TO BATHROOM TONIGHT, GAIT BELT AND WALKER, SBA ONLY ONCE HE IS UP, NEEDS ASSIST TO STAND. TRAMADOL AND ATIVAN AT HS TO AID SLEEP
[2018-09-06 07:35] VITALS: BP 109/68
--- NOTE | 2018-09-06 10:00 | NUR ---
cm returned phone call to shaunna rt dcp, pt and agree with dcp. [facility] is ok to use "[facility] [place] [facility] not needed that, but do have question on having grab bars but in shower, where can get that done?"/shaunna. education on [facility] [facility] and senior blue book let in room for pt outside resources after dc. referral sent to [facility] and will cont following as needed for dc needs.
--- NOTE | 2018-09-06 17:56 | NUR ---
ASSUMED CARE AT APPROX 0715. PATIENT A/O X3-4. FORGETFUL AT TIMES. NOTED TO BE IMPULSIVE AT TIMES, STATES HE CANNOT WAIT FOR ASSISTANCE AT TIMES R/T TO URGENCY. PATIENT WAS CONTINENT, TOILETED Q2-3 HOURS, BRIEFS STAYED DRY. EDEMA TO BLE, LEGS ELEVATED AT REST. PATIENT HYPOTENSIVE, PROVIDER AWARE, PATIENT DENIES SYMPTOMS- REPORTS NO DIZZINESS OR FEELING LIGHT HEADED. OTHER VSS. PARTICIPATED IN THERAPY. REPORTED BETTER SLEEP LAST NIGHT. PATIENT UP X1 ASSIST. FALL PRECAUTIONS IN PLACE. ROUNDED ON HOURLY. WILL CONTINUE TO MONITOR.
[2018-09-06 19:00] VITALS: BP 109/65
[2018-09-07 00:45] VITALS: BP 119/68
--- NOTE | 2018-09-07 02:58 | NUR ---
assumed care at approx 1900 evening 09/06. pt sitting up in recliner at change of shift resting. pt alert and oriented x4, appropriate and cooperative. pt took hs meds with water tolerating well. pt up to bathroom several times to void. pt sleeping off and on. pt now in chair. chair alarm on and call light in reach. will continue to monitor.
[2018-09-07 07:07] VITALS: BP 107/65
--- NOTE | 2018-09-07 18:51 | NUR ---
ASSUMED CARE OF PT AT 0715. PT IS A&OX4, BLOOD PRESSURE LOW THIS SHIFT AND BLOOD PRESSURE MEDICATIONS HELD PER ORDERS. PT TAKES MEDICAITONS WHOLE WITH THIN LIQUIDS. AMBULATES WITH 1 PERSON USING GAIT BELT AND WALKER. PT IS IMPULSIVE AND FREQUENTLY DOES NOT CALL FOR ASSISTANCE AND WILL ATTEMPT TO SELF-TRANSFER. FLUID RESTRICTION OF 2000ML/DAY. PT REPORTED PAIN DURING SHIFT AND WAS TREATED WITH PO MEDICAITONS PER ORDERS, AND WAS ABLE TO PARTICIPATE IN SCHEDULED THERAPIES. FALL PRECUATIONS IN PLACE AND NURSING WILL CONTINUE TO MONITOR.
[2018-09-07 19:10] VITALS: BP 97/65
--- NOTE | 2018-09-08 03:01 | NUR ---
PATIENT IS DOING WELL WALKING TO TOILET WITH GAIT BELT, WALKER, AND STANDBY ASSIST. NEEDS REMINDER TO USE CALL LIGHT prior TO GETTING UP. DENIES GIULIANA FOR PAIN TONIGHT SINCE HEATING PAD IS REALLY HELPING HIS CHRONIC LOWER BACK PAIN. [place]AN HELD FOR BP UNDER 97/55, PARAMETER ESTABLISHED TO HOLD DOSE ANY TIME SBP IS LESS THAN 110.
[2018-09-08 08:34] VITALS: BP 140/90
--- NOTE | 2018-09-08 10:45 | NUR ---
PATIENT HAD THERAPY THIS AM ATE [facility]ST HAD LARGE BOWEL MOVEMENT. PT ALERT XS 4. PLEASANT AND COOPERATIVE WITH CARE. ROOM AIR NO SKIN ISSUES, NO IV ACSESS. TAKES MEDS PO W/O DIFFICULTY.
--- NOTE | 2018-09-08 17:08 | NUR ---
PT IN BEDSIDE CHAIR WATCHING TV AND EATING DINNER, PT IS CONT OF B&B. SBA TO BATHROOM. PT W/O PAIN OR RESP DISTRESS.
[2018-09-08 19:05] VITALS: BP 128/65
--- NOTE | 2018-09-08 23:16 | NUR ---
ASSUMED CARE AT 1900, ASSESSMENT COMPLETED. PT UP IMPULSIVELY TO TOILET MULTIPLE TIMES; HAS NOT CALLED FOR STAFF OR IF HE DOES CALL DOESN'T WAIT FOR ASSISTANCE; BOTH CHAIR AND THEN BED ALARMS HAVE BEEN ON EVERY TIME. REMOVED SOFT TOUCH CALL LIGHT IT WAS PREVENTING THE BED ALARM FROM WORKING PROPERLY TO REPORT THE ROOM THE ALARM WAS COMING FROM. EDUCATED PT AT LENGTH THAT HE NEEDS TO CALL FOR ASSISTANCE TO AVOID FALLING; EXPLAINED WHAT BUTTON TO PUSH, TO CALL SOON HE THINKS HE MIGHT NEED TO GO RATHER THAN WHEN IT IS URGENT, AND TO WAIT UNTIL SOMEONE COMES IN THE ROOM. FREQUENT CHECKS TO ENSURE COMPLIANCE. PT REPORTS BACK PAIN ABOUT A 5 OF 10, GIVEN 50 MG OF TRAMADOL WELL XANEX TO HELP SLEEP. DID NOT WANT TO USE KPAD IN BED. 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 BILATERAL FEMORAL DRESSINGS ARE IN PLACE, SLIGHT PULLING UP AT EDGES WITH SMALL, DRIED SPOTS. A FEW SMALL ABRASIONS TO RIGHT THIGH, POSSIBLY POPPED BLISTERS FROM KPAD SITTING ON LEG. DENIES NAUSEA OR SOB. NO OTHER CONCERNS, WILL CONTINUE TO MONITOR.
[2018-09-09 07:28] VITALS: BP 114/61
--- NOTE | 2018-09-09 20:04 | NUR ---
ASSUMED CARE OF PT AT 0715. PT IS A&OX4, FORGETFULL AND IMPULSIVE, VITAL SIGNS ARE STABLE. PATIENT FREQUENTLY ATTEMPTED TO AMBULATE INDEPENDENTLY AND SET OF BED/CHAIR ALARMS DURING SHIFT. PATIENT EDUCATED SEVERAL TIMES REGARDING FALL RISK AND FALL PRECAUTIONS, AND VERBALIZED UNDERSTANDING. AMBULATES WITH 1 PERSON MIN-MOD ASSIST WITH GAIT BELT AND WALKER. TOLERATES MEDICAITONS WHOLE WITH THIN LIQUIDS. REPORTS NO PAIN AND PARTICIPATED IN SCHEDULED THERAPIES. FALL PRECAUTIONS IN PLACE AND NURSING WILL CONTINUE TO MONITOR.
[2018-09-09 20:16] VITALS: BP 139/61
--- NOTE | 2018-09-09 23:58 | NUR ---
ASSUMED CARE OF PT AT 1915. PT IA A&OX4, WITH FORGETFULNESS. IS ON ROOM AIR. IS STABLE. CAN BE IMPULSIVE. HAS URINARY URGENCY. DENIES PAIN. IS UP WITH 1 ASSIST, GB, WALKER TO BATHROOM. FALL PRECAUTIONS & HOURLY ROUNDING CONTINUED THIS SHIFT. LABS & VITALS REVIEWED. PT IS CURRRENTLY IN ROOM IN BED SLEEPING. CALL LIGHT WITHIN REACH. WILL CONTINUE TO MONITOR.
[2018-09-10 07:55] VITALS: BP 108/60
--- NOTE | 2018-09-10 20:29 | NUR ---
ASSUMED CARE OF PT AT 0715. PT IS A&OX4 AND VITAL SIGNS ARE STABLE. PT TOLERATED PO MEDICAITONS WHOLE WITH THIN LIQUIDS. TRANSFERS WITH 1 PERSON MIN-MOD ASSIST WITH GAIT BELT AND WALKER. PT IS IMPULSIVE AND ATTEMPTS TO SELF AMBULATE. NURSING EDUCATED PT ABOUT FALL PRECUATIONS. FALL PRECAUTIONS IN PLACE AND NURSING WILL CONTINUE TO MONITOR.
[2018-09-10 21:41] VITALS: BP 110/67
--- NOTE | 2018-09-11 02:48 | NUR ---
UP TO TOILET WITH GAIT BELT, WALKER, AND STANDBY ASSIST. TWICE REMINDED TO CALL FIRST BEFORE GETTING UP FROM CHAIR. NO C/O PAIN AT THIS TIME.
[2018-09-11 05:58] LABS: ABSOLUTE NEUTROPHILS 5.4 thou/uL (1.4-8.2); BASOPHILS 0.4 % (0.0-2.0); HEMATOCRIT 39.9 % (42.0-52.0); HEMOGLOBIN 13.4 gm/dL (14.0-18.0); LYMPHOCYTES 23.9 % (24.0-44.0); MCH 31.7 pg (26.0-34.0); MCHC 33.5 g/dL (28.0-37.0); MCV 94.7 fL (80.0-100.0); MONOCYTES 7.4 % (1.0-8.0); PLATELET COUNT 243 thou/uL (150-400); POLYS 66.3 % (36.0-66.0); RBC 4.22 mil/uL (4.50-6.00); WBC 8.1 thou/uL (4.0-11.0)
[2018-09-11 06:09] LABS: CALCIUM 8.9 mg/dL (8.5-10.1); CREATININE 0.9 mg/dL (0.7-1.3); MAGNESIUM 2.3 mg/dL (1.8-2.4); POTASSIUM 4.2 mmol/L (3.5-5.1)
[2018-09-11 07:31] VITALS: BP 118/66
--- NOTE | 2018-09-11 11:37 | NUR ---
Pt seen for LOS on rehab. PMH: HTN, prior CVA, PAD, obesity, hyperlipidemia. Admitted for medical complexity w/ generalized debility and infrarenal abdominal aortic aneurysm. On a Low Fat, 2 g Na, 2 L fluid restriction diet. Weighs 249# per daily 09/11 standing wt. Reports UBW of 287# in 03/2018. This is a 38# (13.2%) healthy weight loss. Pt states "I've been meaning to try to lose." Eats appropriately, when hungry at home - 2 meals/day with large breakfast and dinner at 4pm. Here at lunch - pt may eat or may only take in liquids. Meal average is high and adequate at 85% x 5 days (often eating 75-100% of all meals). Last BM 09/10. Denies any appetite or nutrition concerns. No interventions indicated at this time. Is a low nutrition risk.
[2018-09-11 19:14] VITALS: BP 102/62
--- NOTE | 2018-09-11 19:48 | NUR ---
ASSUMED CARE OF PT AT 0715. PT IS A&OX4 AND VITAL SIGNS ARE STABLE. PT TOLERATES PO MEDS WHOLE WITH THIN LIQUIDS. TRANSFERS WITH 1 PERSON MIN ASSIST WITH GAIT BELT AND WALKER. THERAPY FOUND POTASSIUM PILLS IN PT PANTS POCKET DURING SHIFT AND BROUGHT TO ATTENTION OF NURSING STAFF. PILLS DISPOSED OF AND PROVIDER MADE AWARE, MEDICATION D/C'D. PT DENIES PAIN, BUT DID REPORT NAUSEA WHICH WAS TREATED WITH MEDICATION, PARTICIPATED IN ALL SCHEDULED THERAPIES. FALL EDUCATION REVIEWED WITH PATIENT PATIENT CONTINUES TO ATTEMPT TO SELF AMBULATE. FALL PRECAUTIONS IN PLACE AND NURSING WILL CONTINUE TO MONITOR.
--- NOTE | 2018-09-12 04:59 | NUR ---
PATIENT ALERT AND ORIENTED X4. CAN BE IMPULSIVE AT TIMES. UP WITH SBA, GB,WALKER. SLEPT IN CHAIR ALL NIGHT. DENIES PAIN.
--- NOTE | 2018-09-12 07:34 | NUR ---
patient refuses to sign fall risk contract. checked chart for a copy and none found. note on papers on chart stated he will not sign concents without present.
[2018-09-12 08:30] VITALS: BP 109/62
--- NOTE | 2018-09-12 13:41 | NUR ---
team meeting, recommendation: 25th [facility] (pt, ot, st, nursing). pt has [facility], no other dme.
[2018-09-12 19:33] VITALS: BP 99/69
--- NOTE | 2018-09-12 19:38 | NUR ---
PATIENT ALERT AND ORIENTED AND COOPERATIVE WITH PLAN OF CARE ANTICIPATING DISCHARGE ON 09/14/18 TO HOME. PATIENT STATES ONLY GOT FEW HOURS OF SLEEP. HOPES TO SLEEP BETTER TONIGHT. HE SLEEPS IN RECLINER CHAIR.
--- NOTE | 2018-09-13 03:13 | NUR ---
ASSUMED CARE OF PT AT 1915. PT IS A&OX4, B/P IS DECREASED, B/P MEDICAITONS HELD PER PERAMETERS, PT IS ASYMPTOMATIC, WILL CONTINUE TO MONITOR. TRANSFERS AND AMBULATES WITH 1 PERSON MIN ASSIST WITH GAIT BELT AND WALKER. TOELRATED PO MEDICATIONS WHOLE WITH THIN LIQUIDS. PT REPORTED SOME ANXIETY ABOUT NOT BEING ABLE TO SLEEP, PO MEDICATIONS ADMINISTERED FOR ANXIETY, PT SLEEPING IN BED. FALL PRECAUTIONS IN PLACE AND NURSING WILL CONTINUE TO MONITOR.
[2018-09-13 08:20] VITALS: BP 114/65
--- NOTE | 2018-09-13 08:50 | NUR ---
ASSUMED CARE OF PT APPROX 0715, SITTING IN CHAIR READY FOR MEAL, REPORTS OF IMPULSIVITY SO ENCOURAGED HIM TO CALL WHEN HE NEEDS US AND TO WAIT SO THAT WE CAN PREVENT A FALL. HE AGREES TO DO SO, IN A RESISTANT MANNER. TAKES PILLS WHOLE W/LIQUID, GOOD APPETITE, ROOM AIR. SEE INTERVENTION FOR ASSESSEMENT. WILL KEEP ON TOP OF PAIN MANAGEMENT W/TRAM OR APAP, PT DESIRES.
[2018-09-13 16:31] VITALS: BP 114/65
[2018-09-13 19:41] VITALS: BP 115/58
[2018-09-14 08:00] VITALS: BP 122/68
[2018-09-14 10:21] VITALS: BP 114/65
[2018-09-14 10:31] VITALS: BP 114/65
[2018-09-14 10:40] VITALS: BP 114/65
[2018-09-14 11:41] VITALS: BP 114/65
--- NOTE | 2018-09-14 11:42 | NUR ---
Pt dcing home today with spouse via family car. [facility] notified and they will see the pt tomorrow. No other cm interventions indicated.
--- NOTE | 2018-09-14 14:03 | NUR ---
ASSUMED CARE OF PT AT 0715. PT IS A&OX4 AND VITAL SIGNS ARE STABLE. PT TOLERATED PO MEDICAITONS WHOLE WITH THIN LIQUIDS. TRANSFERS AND AMBULATES WITH 1 PERSON ASSISTANCE WITH GAIT BELT AND WALKER. PT REPORTS NO PAIN OR COMPLAINTS DURING MONRNING ASSESSMENT. ORDERS FOR DISCHARGE RECEIVED AND HOME MEDICAITONS COMPLETED BY HOSPITALIST. ARRIVED ON UNIT AT APPROXIMATELY 1300 AND D/C EDUCATION WAS GIVEN BY TOOL AND DIE DESIGNER TO AND PT. DISCHARGE PAPERWORK SIGNED, PRESCRIPTIONS AND DISCHARGE INSTRUCTIONS/HANDOUTS GIVEN TO WIFT. PT TAKEN TO MEDICAL MALL ENTRANCE BY [facility] AT APPROXIMATELY 1345 IN W/C. REMOVED BELONGINGS FROM ROOM.
[2018-09-14 14:11] VITALS: BP 114/65
--- NOTE | 2018-09-15 18:28 | H ---
[facility] [place] [address] HISTORY AND PHYSICAL Name: ROMY BAGLEY Boone Room #: 503-P [facility] IN M.R.#: [id number] Admission: 09/01/18 ������������������ Attend Phys: Agusto Novoa MD Discharge: 09/14/18 ������������������ Date of : 31 Report #: [id number] THIS REPORT FOR: //name// CC: Agusto Waldrop DATE OF SERVICE: 09/01/2018 HISTORY AND PHYSICAL AND POST-ADMISSION PHYSICIAN EVALUATION HISTORY OF PRESENT ILLNESS: The patient is an 82-year-old white male who was originally admitted on 08/30/2018 with an infrarenal abdominal aortic aneurysm approximately 6 cm. He was admitted to [facility] and underwent stent grafting on 08/30/2018. He has a prior history of a cerebrovascular accident 5 to 6 years ago with some residual left-sided weakness. He was a premorbid front-wheeled versus 4-wheeled walker ambulator. He has had some problems with gait and balance issues and was needing more assistance as far as ADLs and self-care than he did previously. With his functional decline, he was admitted for acute in-hospital inpatient rehabilitation. PAST MEDICAL HISTORY: Includes hypertension, elevated lipids, exogenous obesity, bilateral carotid surgery, obstructive sleep apnea and there is a note of cerebrovascular accident 5 to 6 years ago with some residual left-sided weakness as noted above. He indicated that the left-sided weakness was more involving the face actually than the arm and the leg. He also had a prior lumbar fusion, 12/20/2015. MEDICATIONS: Please see the full medication listing. This includes vitamins, herbals, and supplements per report. FAMILY HISTORY: Mother had Alzheimer's. Father and actually from an abdominal aortic aneurysm. ALLERGIES: No known drug allergies. SOCIAL HISTORY: He is and lives with his , single story house, used a front-wheeled walker, 4 steps to get in. He also was a front-wheeled walker. just had gallbladder surgery approximately a week ago, would have difficulty assisting him. She is unable to get him up if he has a fall. REVIEW OF SYSTEMS: He has a left facial weakness. He has a history of chronic back problems and has had prior back surgery. No chest pain, shortness of breath or abdominal discomfort. PHYSICAL EXAMINATION: GENERAL: The patient was seen earlier, 82-[place] [address] HISTORY AND PHYSICAL Name: ROMY BAGLEY Room #: 503-P [facility] IN [facility].#: [id number] Admission: 09/01/18 ������������������ Attend Phys: Augsto Novoa MD Discharge: 09/14/18 ������������������ Date of : 33 Report #: [id number] distress. Does like sleeping in a bed and so has been sleeping in a recliner. VITAL SIGNS: Last recorded blood pressure 123/57, pulse 82, respirations 20, temperature 97.5, sleepy, but arousable. NEUROLOGIC: Facies revealed a left facial droop, is not on any oxygen. No obvious visual field neglect to confrontation, verbalizes reasonably well. CHEST: Sounded clear to auscultation. CARDIOVASCULAR: Regular rate and rhythm. ABDOMEN: Obese, bowel sounds positive, pendulous abdomen, groin areas are dressed from the stenting. GENITOURINARY AND RECTAL: Deferred. EXTREMITIES: Functional range of motion of both upper extremities with strength of grade 4-/5 to 4/5. Lower extremities, functional range of motion, strength is a grade 4-/5. DTRs are trace to 1. Mod assist with sit to stand, ambulating a short distance mod assist with a front-wheeled walker. ASSESSMENT: An 82-year-old white male following problems: 1. Medical complexity with generalized debilitation. 2. Infrarenal abdominal aortic aneurysm, status post stent grafting, 08/30/2018. 3. 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 4. Functional mobility and activities of daily living deficits. 5. Lumbar fusion in 2016. 6. Exogenous obesity. 7. Hypertension. 8. Elevated lipids. 9. Obstructive sleep apnea. 10. Bilateral carotid surgery. PLAN: The patient is admitted for acute in-hospital inpatient rehabilitation. From a post-admission physician evaluation perspective, there are no relevant changes since the preadmission screening. Please see the above review of prior and current medical and functional conditions and comorbidities. Please see the patient's previous and current functional status. As far as risk of complications, he does have the above noted medical comorbidities. Initial plan of care involves the interdisciplinary acute inpatient rehabilitation program with goal of maximizing his functional independence, so he can hopefully return back to his prior living situation. Measurable functional goals would be for him to become modified independent with transfers, mobility and ADLs, so he can hopefully return back to his prior living situation. He did have the premorbid balance issues. Prognosis is reasonably good with estimated length of stay probably at least 7-10 days and likely longer if needed. Potential barriers would include his above noted comorbidities and decreased functional status. The patient meets diagnostic criteria for an acute in-hospital inpatient rehabilitation stay. He meets the medical necessity criteria and we will have [address] [address] HISTORY AND PHYSICAL Name: ROMY BAGLEY Room #: 503-P [facility] IN M.R.#: [id number] Admission: 09/01/18 ������������������ Attend Phys: Agusto Novoa MD Discharge: 09/14/18 ������������������ Date of : 33 Report #: [id number] the life skills consultant physicians follow. He does have the tolerance for therapies and has appropriate discharge goals back to the home setting. ��������������������������������������������� <ELECTRONICALLY SIGNED> ���������������������������������������� By: Agusto Novoa MD ��������������������������������������������� 09/15/18 1828 [id number] Agusto Novoa MD /[facility]
--- NOTE | 2018-09-15 18:28 | PLAN ---
[facility] [place] [address] REHAB UNIT PLAN OF CARE Name: YUDIROMY Shook Room #: 503-P [facility] IN M.R.#: [id number] Admission: 09/01/18 ������������������ Attend Phys: Agusto Novoa MD Discharge: 09/14/18 ������������������ Date of : 33 Report #: [id number] THIS REPORT FOR: //name// CC: Agusto Waldrop DATE OF SERVICE: 09/04/2018 PROGRESS NOTE/OVERALL PLAN OF CARE SUBJECTIVE: The patient is seen back today in followup. He is in no distress. Appears in good spirits. Temperature 98.1, pulse 51, respirations 20, blood pressure 114/49. No calf swelling. Transfers are max assist. Gait min assist, 50 feet front-wheeled walker. In occupational therapy, lower body dressing is dependent. Speech therapy is involved with severe memory deficits. ASSESSMENT: An 82-year-old white male with the following problem list: 1. Medical complexity with generalized debilitation. 2. Infrarenal abdominal aortic aneurysm, status post stent grafting, 08/30/2018. 3. 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 4. Functional mobility and activities of daily living deficits. 5. Lumbar fusion in 2016. 6. Exogenous obesity. 7. Hypertension. 8. Elevated lipids. 9. Obstructive sleep apnea. 10. Bilateral carotid surgery. PLAN: The overall plan of care is based on the preadmission screen, post-admission physician evaluation, and information garnered from therapy assessments. 1. Estimated length of stay is probably 7-10 days, likely longer if warranted. 2. Medical prognosis is reasonably good. 3. Anticipated interventions include the interdisciplinary acute inpatient rehabilitation program. 4. Anticipated functional outcomes would be for the patient to become modified independent with transfers, mobility, ADLs as well as improvement in communication, cognition, so that he can return back to the home setting. 5. Discharge destination would be back home where he lives with his . 6. Expected therapy by discipline includes PT, OT and speech 1 hour per day [address] [address] REHAB UNIT PLAN OF CARE Name: ROMY BAGLEY Room #: 503-P [facility] IN .R.#: [id number] Admission: 09/01/18 ������������������ Attend Phys: Agusto Novoa MD Discharge: 09/14/18 ������������������ Date of : 33 Report #: [id number] each 5 days a week throughout the duration of the acute inpatient rehabilitation stay. ��������������������������������������������� <ELECTRONICALLY SIGNED> ���������������������������������������� By: Agusto Novoa MD ��������������������������������������������� 09/15/18 1828 0810 1325 Agusto Novoa MD /PMT
== END 2018-09-14 13:45 | disposition home health service (06) | DRG 57 ==
PROVIDERS: Internal Medicine; Nurse Practitioner; ADMIT Physical Medicine & Rehabilitation
DX: I69.354 Hemiplegia and hemiparesis following cerebral infarction affecting left non-dominant side (principal); R53.81 Other malaise; I10 Essential (primary) hypertension; E78.5 Hyperlipidemia, unspecified; G47.33 Obstructive sleep apnea (adult) (pediatric); I71.4 Abdominal aortic aneurysm, without rupture; I73.9 Peripheral vascular disease, unspecified; E66.01 Morbid (severe) obesity due to excess calories; E66.09 Other obesity due to excess calories; F41.9 Anxiety disorder, unspecified; Z95.828 Presence of other vascular implants and grafts; Z98.1 Arthrodesis status; Z68.33 Body mass index [BMI] 33.0-33.9, adult; Z82.0 Family history of epilepsy and other diseases of the nervous system
CPT/HCPCS: 10112

== ENCOUNTER → 2018-10-04 | Outpatient (CLI) | payer OTHER ==
[~2018-10-04] MED LIST changes: +CIPRO250 M1 PO
[2018-10-04 13:31] LABS: CREATININE 0.8 mg/dL (0.7-1.3)
== END ==
LOC: CAT 12:21
PROVIDERS: Nuclear Medicine Nuclear Cardiology
DX: I71.4 Abdominal aortic aneurysm, without rupture (principal); I70.0 Atherosclerosis of aorta; M47.815 Spondylosis without myelopathy or radiculopathy, thoracolumbar region

== ENCOUNTER 2018-10-06 16:29 | Emergency (ER) | payer OTHER ==
[~2018-10-06] VITALS: Ht 185.4 cm; Wt 112.0 kg
[~2018-10-06 16:29] MED LIST changes: -CIPRO250 M1 PO
[2018-10-06] MEDS ORDERED: CIPRO250 M1 PO (17:22)
[2018-10-06 17:43] LABS: ABSOLUTE NEUTROPHILS 3.7 thou/uL (1.4-8.2); EOSINOPHILS 1.5 % (0.0-3.0); HEMATOCRIT 40.5 % (42.0-52.0); HEMOGLOBIN 13.5 gm/dL (14.0-18.0); LYMPHOCYTES 27.9 % (24.0-44.0); MCH 31.1 pg (26.0-34.0); MCHC 33.3 g/dL (28.0-37.0); MCV 93.3 fL (80.0-100.0); PLATELET COUNT 206 thou/uL (150-400); POLYS 61.6 % (36.0-66.0); RBC 4.34 mil/uL (4.50-6.00); RDW 14.5 % (10.5-14.5)
[2018-10-06 17:48] LABS: ANION GAP 9 mmol/L (7-16); BUN 16 mg/dL (7-18); CHLORIDE 104 mmol/L (98-107); CO2 25 mmol/L (21-32); CREATININE 0.7 mg/dL (0.7-1.3); GLUCOSE 99 mg/dL (74-106); POTASSIUM 4.3 mmol/L (3.5-5.1); SODIUM 138 mmol/L (136-145)
[2018-10-06 17:59] LABS: ALBUMIN 3.1 g/dL (3.4-5.0); LIPASE 67 U/L (73-393); MAGNESIUM 1.8 mg/dL (1.8-2.4); SGOT 25 U/L (15-37); SGPT 18 U/L (30-65); TOTAL BILIRUBIN 0.5 mg/dL (<0.1-1.0); TOTAL PROTEIN 6.6 g/dL (6.4-8.2); TROPONIN-I <0.06 ng/mL (<0.06)
[2018-10-06 18:49] LABS: URINE BILIRUBIN NEGATIVE (Negative); URINE BLOOD TRACE (Negative); URINE CLARITY CLEAR; URINE COLOR YELLOW; URINE GLUCOSE-RANDOM* NEGATIVE (Negative); URINE KETONES NEGATIVE (Negative); URINE LEUKOCYTES-REFLEX NEGATIVE (Negative); URINE NITRITE-REFLEX NEGATIVE (Negative); URINE PROTEIN (DIPSTICK) NEGATIVE (Negative); URINE UROBILINOGEN 0.2 E.U./dl (0.2-1.0)
[2018-10-06 19:14] VITALS: BP 129/65
--- NOTE | 2018-10-07 10:38 | EKG ---
[place] [address] [facility] [address] ELECTROCARDIOGRAM REPORT Name: YUDIROMY E [id number] Admission: 10/06/18 Attend Phys: Discharge: 10/06/18 Date of : 33 Report #: [id number] THIS REPORT FOR: //name// [facility] ED Test Date: 2018-10-06 Test Time: 16:37:16 Pat Name: ROMY BAGLEY Department: Room: Gender: Disposition Clerk: [facility] : 1935 Requested By: Yaz Romero Order Number: [id number] MD: Levy Alcala Measurements Intervals [place] Rate: 79 P: 42 VA: 193 QRS: 33 QRSD: 100 T: 22 QT: 384 QTc: 441 Interpretive Statements Sinus rhythm No significant abnormality Compared to ECG 08/22/2018 10:27:11 Atrial premature complex(es) no longer present Electronically Signed On 10-07-2018 10:38:23 CDT by Levy Alcala [email or web address] <ELECTRONICALLY SIGNED> By: Levy Alcala MD, [facility] 10/07/18 1038 D: 08/1636 36 Levy Alcala MD, FACC /EPI
== END 2018-10-06 19:14 | disposition home or self-care (01) ==
LOC: ER 16:29
PROVIDERS: Physician Assistant
DX: R53.1 Weakness (principal); F41.9 Anxiety disorder, unspecified; F32.9 Major depressive disorder, single episode, unspecified; I25.10 Atherosclerotic heart disease of native coronary artery without angina pectoris; E78.00 Pure hypercholesterolemia, unspecified; I10 Essential (primary) hypertension; I95.9 Hypotension, unspecified; K21.9 Gastro-esophageal reflux disease without esophagitis; G47.30 Sleep apnea, unspecified; Z85.828 Personal history of other malignant neoplasm of skin; Z87.891 Personal history of nicotine dependence

== ENCOUNTER 2018-10-29 16:38 | Inpatient (IN) | payer OTHER ==
[~2018-10-29] VITALS: Ht 185.4 cm; Wt 112.5 kg
--- NOTE | ~2018-10-29 | EMS ---
[address] [address] EMS Patient Care Report Name: ROMY BAGLEY Room #: REG VILLA Pantoja#: [id number] Admission: 10/29/18 ������������������ Attend Phys: Discharge: ������������������ Date of : 33 Report #: [id number] THIS REPORT FOR: //name// Report Transmitted: 10/29/2018 16:43 EMS Care Summary [facility] MED-ACT Incident [id number] @ 10/29/2018 15:59 Incident Location [address] [place] [address] Patient ROMY BAGLEY Male, 83 Years 1935 Patient Address [address] [place] [address] Patient History Dementia,Hypertension, Patient Allergies No known allergies, Patient Medications Lorazepam, Chief Complaint My head hurts Disposition Transported No Lights/[place] Dispatch Reason Sick Person Transported To [facility] Narrative Arrived on scene to find an 82 y/o male sitting on a an assisted walker which was placed in bathroom entry in master bedroom of residence. Pt presented alert, naked from the waist down, with visible tremors to his left hand, appearing confused, unable to sit still, and uncooperative with Shalini escudero [address] [address] EMS Patient Care Report Name: ROMY BAGLEY Room #: REG VILLA Pantoja#: [id number] Admission: 10/29/18 ������������������ Attend Phys: Discharge: ������������������ Date of : 33 Report #: [id number] were attempting to assess the pt. Per pt's , the pt has had a decrease in his cognitive function. He has a hx of dementia and she feels that his dementia is increasing. She also reports that her is having difficulty walking about, constantly falling. Pt's reports that he is unable to sit still and follow directions and that she is overwhelmed and wants him transported to ED for evaluation. Pt's reports that the last time he was within his normal level of confusion was approximately 2 days prior to today's event. Pt was a poor historian. He was however able to provide a c/c which was a headache to the center of his forehead. Pt was confused with a GCS of 14. He was able to follow directions intermittently but was focused on getting off of the cot once he was secured to it. Pt was unable to sit still and had to be transported with two MICT providers in the back of unit. No IV attempted due to potential hazard of an accidental needle stick. Complete set of VS delayed due to pt's inability to sit still and cooperate with EMS crew. Initial Vitals @16:26P: 102,BP: 113/93,SpO2: 94,CO Suspected: false @16:21P: 101,BP: 107/93,SpO2: 94, @16:15P: 110,R: 20,Pain: 0/10,GCS: 14,Glucose: 145,SpO2: 94,Revised Trauma: 12, Assessments @16:08MENTAL:SKIN:No Abnormalities,HEENT:Head/Face: No Abnormalities,Eyes: No Abnormalities,Neck/Airway: No Abnormalities,LUNG SOUNDS:General: No Abnormalities,Left Upper: No Abnormalities,Right Upper: No Abnormalities,Left Lower: No Abnormalities,Right Lower: No Abnormalities,ABDOMEN:General: No Abnormalities,Left Upper: No Abnormalities,Right Upper: No Abnormalities,Left Lower: No Abnormalities,Right Lower: No Abnormalities,PELVIS//GI:No Abnormalities,EXTREMITIES:PULSE:NEURO:Abnormal Gait,Weakness Left-Sided,Tremors, Impression Altered Mental Status Timeline 15:58,Call Received 15:58,Psap Call 15:59,Dispatched 16:00,En Route 16:04,On Scene 16:06,At Patient 16:15,BP: 120/ M,PULSE: 110,RR: 20 R,SPO2: 94 Ox,ETCO2: ,B,PAIN: 0,GCS: 14, 16:21,Depart Scene [address] [address] EMS Patient Care Report Name: ROMY BAGLEY Boone [id number] Admission: 10/29/18 ������������������ Attend Phys: Discharge: ������������������ Date of : 33 Report #: [id number] 16:21,BP: 107/93 M,PULSE: 101,RR: R,SPO2: 94 Ox,ETCO2: ,BG: ,PAIN: ,GCS: , 16:26,BP: 113/93 M,PULSE: 102,RR: R,SPO2: 94 Ox,ETCO2: ,BG: ,PAIN: ,GCS: , 16:30,At Destination 16:51,Call Closed Disclaimer v1.1 Copyright 2019 [employer] This EMS Care Summary contains data elements from the applicable legal record (which may be displayed differently). It is designed to provide pertinent information for the following purposes: continuity of care, clinical quality, and state data reporting. The complete legal record is available to ED staff and administrators of the receiving hospital in [employer]'s Patient Tracker. All data is provided "as is."
--- NOTE | ~2018-10-29 | HC ---
[facility] [place] [address] CONSULTATION Name: ROMY BAGLEY Room #: 203-P ADM IN M.R.#: [id number] Admission: 10/30/18 ������������������ Attend Phys: Nhung Leonard Discharge: ������������������ Date of : 33 Report #: [id number] THIS REPORT FOR: //name// CC: Irwin Ivey FAM unknown Nhung Leonard DATE OF SERVICE: 11/05/2018 REASON FOR CONSULTATION: Acute kidney injury. HISTORY OF PRESENT ILLNESS: This is an 83-year-old male who was admitted a week ago with some mental status changes. I have reviewed the course of his hospitalization. It shows he has continued to have some delirium and mental status changes. At this time, he is restless and noncommunicative with me, so he cannot provide any additional details. I am asked to see him at this time as he had normal creatinine level on admission of 0.9. It was down to 0.6 by a couple of days ago. Yesterday it increased abruptly to 1.8 and today up to 3.8. He has been oliguric over the past couple of days. He has a Mendoza catheter in place. It is just draining a small amount of pale pink-tinged urine. He has been on some IV fluids. His serum sodium went from 142 two days ago to 149 today. His potassium level was 3.8. Over that same period of time, his BUN has gone from 7-17-33. He had a urinalysis checked earlier today, which showed specific gravity less than 1.005, pH 5.5, 3+ blood, 3-10 red cells, 0-5 white cells and a few hyaline casts. No proteinuria was seen. He had a renal ultrasound done, which showed normal sized kidneys without any evidence of obstruction. He also had a CT scan of the abdomen and pelvis done on 10/29/2018 after admission. That was done with contrast. It showed perfusion to both kidneys and both kidneys were unobstructed and they looked fairly unremarkable. I also reviewed his renal arteriography from a couple of months ago, which showed the two arteries to the one kidney and one artery to the other kidney, all of which were patent and showed at worst mild plaquing. I would note that the CT scan with contrast was done 7 days ago and throughout that time, his creatinine ran from 0.9 down to 0.6 and it only increased over the past 2 days. I find no new medications that could have contributed over the past couple of days. He has had no hypotensive episodes. No fever or septic episodes. Again, the patient cannot provide me any history. PAST MEDICAL HISTORY: Longstanding hypertension. He had an abdominal aortic aneurysm. In 08/2018, he underwent stent graft including a stent graft to the infrarenal abdominal aorta with extension into the bilateral iliac arteries. At that time that was originally placed. He had an endoleak type 1 at the superior margin of the stent graft, so he had a cuff placed, but again that was all done below the level of the renal arteries and he had no change in his creatinine level around that time. Additional history is [place] [address] CONSULTATION Name: ROMY BAGLEY Room #: 203-P [facility] IN ..#: [id number] Admission: 10/30/18 ������������������ Attend Phys: Nhung Leonard Discharge: ������������������ Date of : 33 Report #: [id number] long-term recently. He has had increasing amounts of dementia and agitation. He had back surgery in 2016. He has a history of coronary artery disease, hyperlipidemia, hypertension, skin cancers. MEDICATIONS: Cefdinir, Seroquel 25 mg at bedtime, famotidine 20 mg b.i.d., Lovenox 40 mg daily and some tramadol, otherwise some p.r.n. medications. I could find no nonsteroidals or other nephrotoxic exposures. ALLERGIES: No known medical allergies. FAMILY HISTORY: Noncontributory. SOCIAL HISTORY: The patient is , has an address in [place], [place]. He is retired and again has been living in a care center recently. REVIEW OF SYSTEMS: Unavailable. PHYSICAL EXAMINATION: GENERAL: An 83-year-old elderly gentleman. He is unresponsive to me, he will moan a bit. He does appear somewhat restless. HEENT: Pupils are equal and reactive. Sclerae nonicteric. Oral mucosa is dry. NECK: Veins are not distended. CHEST: Clear bilaterally. CARDIOVASCULAR: Has a regular rate and rhythm bordering on a tachycardia. ABDOMEN: Has a few bowel sounds present. It is soft. I cannot percuss or palpate an enlarged bladder. Does not appear tender. No CVA tenderness. EXTREMITIES: Show no lower extremity edema. He has 2+ bilateral pedal pulses. I see no blue toes. LABORATORY DATA: From today, sodium 149, potassium 3.8, chloride 111, bicarbonate 25, BUN 33, creatinine 3.8, glucose 104, calcium 8.6, phosphorus 3.9, albumin 2.4. CPK 863. Last CBC was 2 days ago, hemoglobin 13.8, hematocrit 41.2, white count 8.8, platelets 165,000. Last differential was 5 days ago, which showed less than 1% eosinophils. Urinalysis as noted above. In addition, Spot urine sodium 104. Urine creatinine 18.2. Blood gas today, pH 7.33, pCO2 of 36.6, pO2 of 60.6. ASSESSMENT: 1. Acute kidney injury. There was an abrupt onset of this 2 days ago. I have looked at his records. I find no evidence of hemodynamic compromise at that time. No evidence of sepsis or other major time. He did not receive any nephrotoxic exposures. He received contrast a week ago, but he had a normal if not declining creatinine for 5 days after that, so this is not contrast nephrotoxicity. His UAE is unremarkable, but would have the appearance with his high fractional excretion of sodium of an ATN urine. This leaves us with either an acute tubular necrosis or an acute vascular catastrophe to his kidneys. With [facility] [address] [place] [address] CONSULTATION Name: YUDIROMY COPE Room #: 203-P [facility] IN .R.#: [id number] Admission: 10/30/18 ������������������ Attend Phys: Nhung Leonard Discharge: ������������������ Date of : 33 Report #: [id number] his history of aortic stent grafting and aortic vascular disease, I would be worried about cholesterol emboli syndrome, but he has no blue toes. We will check for eosinophilia, which might be a hint. Additionally, we would have to make sure that he has adequate renal perfusion. Certainly, he had that a week ago, but that could have changed. We will check a renal Doppler evaluation. In the meantime, he has been oliguric and we will give him a single dose of Lasix to see if we can increase his urine output. We will continue to look for evidence but I cannot say it at this point of why he has shut down 2 days ago. 2. Atherosclerotic vascular disease with recent abdominal aortic aneurysm. He had the repair 2 months ago as documented above. 3. History of hypertension, still hypertensive at this point. Again, I found no evidence of hypotension leading up to this current event. 4. Dementia and unfortunately he is unable to help me with that any history. PLAN: 1. I will check a renal Doppler. 2. I will try a dose of IV Lasix to see if we can increase urine output. 3. I will recheck a CBC with diff to see if there is any eosinophilia. 4. Check an LDH to see if there is evidence, although it would be fairly nonspecific, of renal infarction. 5. Repeat labs. 6. We will follow along the care of this patient. ��������������������������������������������� ���������������������������������������� By: ��������������������������������������������� [id number] Boris Bay MD /nt
[~2018-10-29 16:38] MED LIST changes: +CIPRO250 M1 PO
[2018-10-29 17:00] LABS: URINE BILIRUBIN NEGATIVE (Negative); URINE BLOOD TRACE (Negative); URINE CLARITY CLEAR; URINE COLOR YELLOW; URINE GLUCOSE-RANDOM* NEGATIVE (Negative); URINE KETONES NEGATIVE (Negative); URINE LEUKOCYTES-REFLEX TRACE (Negative); URINE NITRITE-REFLEX NEGATIVE (Negative); URINE PROTEIN (DIPSTICK) NEGATIVE (Negative); URINE UROBILINOGEN 0.2 E.U./dl (0.2-1.0)
[2018-10-29 17:05] LABS: ABSOLUTE NEUTROPHILS 5.7 thou/uL (1.4-8.2); BASOPHILS 0.8 % (0.0-2.0); EOSINOPHILS 0.6 % (0.0-3.0); HEMATOCRIT 43.6 % (42.0-52.0); HEMOGLOBIN 14.3 gm/dL (14.0-18.0); LYMPHOCYTES 27.6 % (24.0-44.0); MCH 31.3 pg (26.0-34.0); MCHC 32.8 g/dL (28.0-37.0); MCV 95.6 fL (80.0-100.0); MONOCYTES 6.3 % (1.0-8.0); PLATELET COUNT 193 thou/uL (150-400); POLYS 64.7 % (36.0-66.0); RBC 4.56 mil/uL (4.50-6.00); RDW 14.9 % (10.5-14.5); WBC 8.8 thou/uL (4.0-11.0)
[2018-10-29 17:23] LABS: ANION GAP 6 mmol/L (7-16); BUN 18 mg/dL (7-18); CALCIUM 9.6 mg/dL (8.5-10.1); CHLORIDE 101 mmol/L (98-107); CO2 24 mmol/L (21-32); CREATININE 0.9 mg/dL (0.7-1.3); GLUCOSE 169 mg/dL (74-106); POTASSIUM 4.6 mmol/L (3.5-5.1); SODIUM 131 mmol/L (136-145)
--- NOTE | 2018-10-29 17:26 | NUR ---
-[facility] [id number] CELL [id number]
[2018-10-29 17:33] LABS: ALBUMIN 3.5 g/dL (3.4-5.0); MAGNESIUM 1.8 mg/dL (1.8-2.4); SGOT 36 U/L (15-37); SGPT 24 U/L (30-65); TOTAL BILIRUBIN 0.6 mg/dL (<0.1-1.0); TOTAL PROTEIN 7.8 g/dL (6.4-8.2); TROPONIN-I <0.06 ng/mL (<0.06)
[2018-10-29 23:28] VITALS: BP 166/94
[2018-10-30] VITALS (7 sets, daily range): BP systolic 83–166; BP diastolic 44–79
--- NOTE | 2018-10-30 03:51 | NUR ---
PT ARRIVED ON THE UNIT FROM THE ER DROWSY AND MEDICALLY SEDATED. PER REPORT FROM ER NURSE KALPESH PT IS AGITATED, RESTLESS AND CONFUSED. UPON ASSESSMENT ON THE UNIT PT UNABLE TO VOICE CONCERN OR VERBALIZE TEACHING BUT RESPONDS TO PAINFUL STIMULI. ASSMENT COMPLETED PT HAS A TEMP OF 100.5 AND ODERED PLACED FOR TYELNOL. PT IV INTACT ON LFT FOREARM. FALL PREC IN PLACE AND WILL CONT WITH POC TILL EOS.
--- NOTE | 2018-10-30 08:13 | EKG ---
[place] [address] [facility] [place] [address] ELECTROCARDIOGRAM REPORT Name: ROMY BAGLEY Boone Room #: 421-P [facility] M.R.#: [id number] ������������������ Admission: 10/29/18 ������������������ Attend Phys: Nhung Leonard Discharge: ������������������ Date of : 33 Report #: [id number] ����������������������������������������������������������������� [id number] THIS REPORT FOR: //name// [facility] ED Test Date: 2018-10-29 Test Time: 17:26:54 Pat Name: ROMY BAGLEY Department: Room: [facility] Gender: M Dumper Operator: JUAN : 1935 Requested By: Rafi Guardado Order Number: [id number] MD: Levy Alcala Measurements Intervals Reynolds Rate: 118 P: 69 ID: [id number] QRS: 67 QRSD: 74 T: -40 QT: 312 QTc: 438 Interpretive Statements Sinus tachycardia with atrial premature complexes and occasional premature ventricular complexes Nonspecific ST and T wave abnormality Compared to ECG 10/06/2018 16:37:16 Ventricular and supraventricular ectopy are now present Electronically Signed On 10-30-2018 8:13:15 CDT by Levy Alcala [email or web address] ��������������������������������������������� <ELECTRONICALLY SIGNED> ���������������������������������������� By: Levy Alcala MD, [facility] ��������������������������������������������� 10/30/18 0813 1726 1726 Levy Alcala MD, [facility] /EPI
--- NOTE | 2018-10-30 13:30 | NUR ---
Assumed pt care at 7am.Pt in bed very restlessness and trying getting out of bed.Bed rail x4 with alarm on.Assessment completed.vss but low bp noted with resp >20bpm.Dr Leonard notified,order noted.Pt's notified about new order.At 1330,pt transfered to icu overflow for closer monitor.
[2018-10-30 14:42] LABS: BE(vivo) 0.4 mmol/L (-2 to +3); HCO3 26.9 mmol/L (22.0-26.0); PO2 79.2 mmHg (80.0-100.0); sO2 94.9 % (92.0-98.0)
--- NOTE | 2018-10-30 16:00 | NUR ---
VASCULAR ACCESS TEAM CONSULTED FORPICC PLACEMENT.PT'S LABS,MEDS,HISTORY AND ORDER VERIFIED. DISCUSSED BENEFITS AND RISK OF PICC WITH SPOUSE,VERBALIZED UNDERSTANDING. PT VERY CONFUSED AND COMBATIVE DURING INSERTION. RN HAD TO MED PT AND HAD 2 STAFF HOLDING HIS ARM STILL DURING INSERTION. PAWAN BRACHIAL WAS WIDELY PATENT WITH USG. 5FR TL POWER PICC TRIMMED TO 43CM INSERTED TO 0CM. STAT CXR SHOWED TOO DEEP SO WITHDREW 4CM REDRESSED AND ANOTHER CXR ORDERED.
--- NOTE | 2018-10-30 16:23 | NUR ---
2ND CXR AFTER PICC REPOSITIONED, CONFIRMS AT THE [facility], PICC RELEASED FOR IMMEDIATE USE PER PROTOCOL TO DEANA DICKENS
[2018-10-30 17:39] LABS: CALCIUM 8.4 mg/dL (8.5-10.1); CREATININE 0.8 mg/dL (0.7-1.3); POTASSIUM 3.9 mmol/L (3.5-5.1)
[2018-10-30 18:25] LABS: HEMOGLOBIN 12.4 gm/dL (14.0-18.0); MCH 31.4 pg (26.0-34.0); MCHC 32.8 g/dL (28.0-37.0); MCV 95.6 fL (80.0-100.0); RBC 3.97 mil/uL (4.50-6.00); RDW 14.6 % (10.5-14.5); WBC 7.5 thou/uL (4.0-11.0)
[2018-10-30 18:37] LABS: APTT 24.5 Seconds (24.5-32.8); PROTIME 10.5 Seconds (9.3-11.4)
--- NOTE | 2018-10-30 19:51 | NUR ---
CALLED PT TO REVIEW NEW ORDERS PUT IN BY DR COTE. OK WITH MRI OF HEAD, ANSWERED QUESTIONARE QUESTIONS. SHE SAID SHE WANTED TO SPEAK WITH HER SON REGARDING THE LP ORDERED FOR TOMORROW BEFORE CONSENTING.
[2018-10-31] VITALS (12 sets, daily range): BP systolic 132–164; BP diastolic 53–111
[2018-10-31 00:09] LABS: GLYCOHEMOGLOBIN (HGB A1C) 5.4 % (4.8-5.6)
--- NOTE | 2018-10-31 04:27 | NUR ---
PATIENTS CARES WERE ASSUMED AT SHIFT CHANGE. PATIENT WAS ASSESSED AND MEDS WERE PASSED. PATIENTS HAS HAD SEVERAL LINEN CHANGES DUE TO INCONTINENT. PATIENT ALSO REMAINS TO BE FIDGETY MOST OF THIS SHIFT. PATIENT DID FALL ASLEEP ABOUT 0300. CLOSE OBSERVATION OF THIS PATIENT ALL OF THIS SHIFT DUE TO RESTRAINTS. BED ALARM IS ON. BE IS IN LOW AND LOCKED POSITION.
[2018-10-31 05:53] LABS: ABSOLUTE NEUTROPHILS 7.2 thou/uL (1.4-8.2); BASOPHILS 0.4 % (0.0-2.0); EOSINOPHILS 0.5 % (0.0-3.0); HEMATOCRIT 38.6 % (42.0-52.0); HEMOGLOBIN 12.6 gm/dL (14.0-18.0); LYMPHOCYTES 12.8 % (24.0-44.0); MCH 31.2 pg (26.0-34.0); MCHC 32.6 g/dL (28.0-37.0); MCV 95.7 fL (80.0-100.0); PLATELET COUNT 145 thou/uL (150-400); POLYS 78.3 % (36.0-66.0); RBC 4.03 mil/uL (4.50-6.00); RDW 14.7 % (10.5-14.5); WBC 9.2 thou/uL (4.0-11.0)
--- NOTE | 2018-10-31 11:19 | NUR ---
SPOKE WITH HOLLY ON PHONE, SHE STATES SHE IS OKAY WITH PATIENT HAVING MRI TODAY BUT SHE SAID NO TO LP.
--- NOTE | 2018-10-31 11:59 | NUR ---
PRIMARY CARE PHYSICIAN: DR. AUDRA THOMPSON [phone] ([facility] OFFICE)
--- NOTE | 2018-10-31 12:00 | NUR ---
JUAN A [facility] # [phone]
--- NOTE | 2018-10-31 14:58 | NUR ---
met with patient who is confused and in restraints. Sp with . Patient and live in home alone with a step to enter from garage. patient prev at [facility] in August with AAA and transferred to Acute Rehab unit. DC home September 14 with care [facility]. Patient was ambulating with walker 165 feet and completed 12 steps at that time. patient rec CHCS until last when PT signed off. reports sits in chair and shaves himself, sponge bathes himself and ambulates with RW. reports prev stay when patient went rehab was good and interested in 5N. Discussed likely cannot return to acute rehab with diagnosis. Left skilled list in room to review. Patient would benefit from therapy evals. casemgt following.
[2018-10-31 16:36] LABS: CREATININE 0.8 mg/dL (0.7-1.3)
[2018-10-31 18:06] LABS: PSA TOTAL 0.8 ng/mL (0.0-4.0)
--- NOTE | 2018-10-31 19:03 | HC ---
[facility] [address] [place] [address] CONSULTATION Name: ROMY BAGLEY Room #: 250-P [facility] IN M.R.#: [id number] Admission: 10/30/18 ������������������ Attend Phys: Nhung Leonard Discharge: ������������������ Date of : 33 Report #: [id number] THIS REPORT FOR: //name// CC: Irwin Ivey FAM unknown Nhung Leonard DATE OF SERVICE: 10/30/2018 INFECTIOUS DISEASE CONSULTATION REASON FOR CONSULTATION: I was asked to evaluate concerning change in mental status along with fever. HISTORY OF PRESENT ILLNESS: The patient is an 83-year-old underlying history of dementia who in August of this year, underwent an aortic aneurysm stent graft without complication. He has been residing in a skilled nursing. Over the last 3 days, he has had worsening dementia symptoms with agitation. Presents now to the Emergency Room, very agitated, had fever of 38.5 degrees. He had episodes of hypotension. He has received IV fluids and was started on antibiotic coverage. Over the day, he has continued to have confusional state and unable to cooperate. There was some report of him having left-sided weakness, but has had previous stroke with residual left-sided weakness, known from previous. He has had no rashes. There has been no cough or sputum production. No nausea, vomiting or diarrhea. He has had no abdominal pain, back pain or complaints of headache or neck pain. There has been no dysuria or hematuria. No flank pain reported. This was all cleaned from discussion with nursing staff attending physician. The patient could not give me any details. Full 10-point review of systems was unable to be obtained due to his mental status. ALLERGIES: None known. MEDICATIONS: Previously was on ciprofloxacin last week for what was reported as a urinary tract infection. He was given Zosyn and is now on vancomycin and cefepime. Other medications as noted on his MAR, which were reviewed. PAST MEDICAL HISTORY: Back surgery in 2016, anxiety, depression, multiple tooth extractions in 2017, stent graft, abdominal aortic aneurysm with bilateral iliac artery aneurysm stent graft, coronary artery disease, bilateral cataract surgeries, hyperlipidemia, hypertension, skin cancers, gastroesophageal reflux, sleep apnea and TMJ. FAMILY HISTORY: Coronary artery disease, Alzheimer's disease. [facility] [address] [place] [address] CONSULTATION Name: YUDIROMY Boone Room #: 250-P [facility] IN [facility].#: [id number] Admission: 10/30/18 ������������������ Attend Phys: Nhung Leonard Discharge: ������������������ Date of : 31 Report #: [id number] SOCIAL HISTORY: Past smoker, no significant alcohol intake. PHYSICAL EXAMINATION: VITAL SIGNS: Temperature currently is 36.3, heart rate 81, blood pressure 115/60. SKIN: Several excoriations to his left leg. No other rashes or decubiti noted. No palpable adenopathy. HEENT: Eyes, without scleral icterus. Pupils are equal, round and reactive to light. Mouth was edentulous. NECK: 1+ nuchal rigidity, but it did seem more consistent with his increased muscle tone throughout. LUNGS: Clear. HEART: Regular, without murmur, gallop or rub. ABDOMEN: Soft and nontender with no hepatosplenomegaly or mass appreciated. Bilateral groin incisions were well approximated with no erythema or fluctuance. GENITOURINARY: External genitalia without mass or lesion. RECTAL: Not performed. EXTREMITIES: Without clubbing, cyanosis or edema. NEUROLOGIC: He was obtunded. He would awaken to painful stimuli and would yell out, but then would drift right back off to sleep. He would not converse otherwise. He would not follow commands. He was able to move all extremities. Cranial nerves tested were normal. Strength in his upper and lower extremities appeared normal. Knee reflexes were brisk. Mood obtunded. LABORATORY STUDIES: On 2 liters of oxygen per nasal cannula, pO2 was 79, pCO2 of 51, pH 7.3. Hemoglobin 14, WBC 8.8 with 64% segs, 27% lymphs and platelet count 193,000. Sedimentation rate 18, creatinine 0.9. Liver function test is normal. Urinalysis is unremarkable. Chest x-ray with basilar atelectasis. CT of the abdomen with stent graft in place. No other acute changes. CT scan of the head and angio was negative for acute change. IMPRESSION: An 83-year-old with underlying dementia, presents now with delirium and fever and transient hypotension. So far, workup has been negative for evidence of intra-abdominal infection, pneumonia or urinary tract infection. I would be concerned about central nervous system infection versus a cold bacteremia, possibly related to his stent graft, although there was no fluid surrounding the artery. Viral infection also possible with less likely considerations would include drugs or toxin or autoimmune process. RECOMMENDATIONS: We will continue supportive measures in the ICU. He is to receive IV fluids and limit his sedation as much as possible. Arrange lumbar puncture to screen for encephalitis. MRI scan of the brain and await cultures. [facility] [address] [place] [address] CONSULTATION Name: YUDI,ROMY E Room #: 250-P ADM IN M.R.#: [id number] Admission: 10/30/18 ������������������ Attend Phys: Nhung Leonard Discharge: ������������������ Date of : 31 Report #: [id number] He will remain on IV antibiotic therapy and we will add acyclovir today pending further studies. ��������������������������������������������� <ELECTRONICALLY SIGNED> ���������������������������������������� By: Hugo Mock MD ��������������������������������������������� 10/31/18 1903 1724 0210 Hugo Mock MD /nt
[2018-11-01] VITALS (7 sets, daily range): BP systolic 146–167; BP diastolic 71–79
--- NOTE | 2018-11-01 02:06 | NUR ---
PLACED CONDOM CATH ON PT. TOLERATED WELL.
[2018-11-01 04:10] LABS: ALBUMIN 2.6 g/dL (3.4-5.0); CALCIUM 8.4 mg/dL (8.5-10.1); CREATININE 0.6 mg/dL (0.7-1.3); POTASSIUM 3.6 mmol/L (3.5-5.1); TOTAL BILIRUBIN 0.6 mg/dL (<0.1-1.0); TOTAL PROTEIN 5.8 g/dL (6.4-8.2)
[2018-11-01 04:14] LABS: ABSOLUTE NEUTROPHILS 7.5 thou/uL (1.4-8.2); BASOPHILS 0.3 % (0.0-2.0); EOSINOPHILS 0.8 % (0.0-3.0); HEMATOCRIT 41.2 % (42.0-52.0); HEMOGLOBIN 13.4 gm/dL (14.0-18.0); MCH 30.9 pg (26.0-34.0); MCHC 32.6 g/dL (28.0-37.0); MCV 94.9 fL (80.0-100.0); MONOCYTES 7.1 % (1.0-8.0); PLATELET COUNT 146 thou/uL (150-400); POLYS 81.8 % (36.0-66.0); RBC 4.34 mil/uL (4.50-6.00); RDW 14.4 % (10.5-14.5); WBC 9.2 thou/uL (4.0-11.0)
--- NOTE | 2018-11-01 09:27 | NUR ---
Assess for low hugo score. Admit with confusion and aggitation. Hx htn, cva, obesity, AAA repair. Was previously here inpatient rehab in August and eating well, stable wt ~250 lb. Currently npo past 2 days; awaiting ST today for possible diet advance. Low nutrition risk at this time.
--- NOTE | 2018-11-01 16:32 | NUR ---
CM HAD CALLED AND LEFT SPOUSE A VM TO SEE IF SHE HAD SLECTED ANY SKILLED REHAB FACILITIES FOR US TO SEND REFERRALS TO. CM LEFT VM. CM MET WITH SPOUSE AT BEDSIDE THIS AFTERNOON SHE INDICATED SHE JUST PICKED LIST UP SHE HADN'T BEEN ABLE TO GET IT LAST NIGHT. DISCUSSED LIST AND SHE WILL LOOK IT OVER THIS EVENING AND LET CM KNOW IN THE AM. CM TO FOLLOW INDICATED WITH DC PLANNING.
--- NOTE | 2018-11-01 16:58 | NUR ---
PT REMAINS CONFUSED, IMPULSIVE, RESTLESS TODAY. HALDOL GIVEN X1. BILAT WRIST RESTRAINTS IN PLACE. PT'S AT BEDSIDE THIS AFTERNOON AND UPDATED. SHE IS CONCERNED THAT IT WILL BE TOO MUCH FOR HER TO CARE FOR PATIENT AT HOME. CASE MANAGEMENT CONSULTED.
--- NOTE | 2018-11-01 22:38 | NUR ---
PT WITH RHYHM CHANGE APPEARS LIKE AFIB RATE ANYWHERE FROM 100-145. PT REMAINS AGITATED WHICH IS UNCHANGED FROM PREVIOUS. EKG OBTAINED ST W/IRREGULAR RATE. REPORTED TO LEONARD OSBORN NP. ORDERS RECEIVED.
[2018-11-02] VITALS (9 sets, daily range): BP systolic 126–176; BP diastolic 72–89
[2018-11-02 05:58] LABS: HEMATOCRIT 40.4 % (42.0-52.0); HEMOGLOBIN 13.5 gm/dL (14.0-18.0); MCH 31.4 pg (26.0-34.0); MCHC 33.3 g/dL (28.0-37.0); MCV 94.2 fL (80.0-100.0); RBC 4.29 mil/uL (4.50-6.00); RDW 14.4 % (10.5-14.5); WBC 9.2 thou/uL (4.0-11.0)
[2018-11-02 06:20] LABS: ALBUMIN 2.6 g/dL (3.4-5.0); CALCIUM 8.4 mg/dL (8.5-10.1); CREATININE 0.6 mg/dL (0.7-1.3); MAGNESIUM 2.1 mg/dL (1.8-2.4); POTASSIUM 3.3 mmol/L (3.5-5.1); TOTAL BILIRUBIN 0.6 mg/dL (<0.1-1.0); TOTAL PROTEIN 6.3 g/dL (6.4-8.2)
--- NOTE | 2018-11-02 09:00 | EKG ---
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1935 Requested By: Mariah Braun Order Number: [id number] MD: Levy Alcala Measurements Intervals [place] Rate: 111 P: 157 WI: 93 QRS: 59 QRSD: 85 T: -10 QT: 333 QTc: 453 Interpretive Statements Multifocal atrial tachycardia Abnormal R-wave progression, early transition Borderline repolarization abnormality Compared to ECG 10/29/2018 17:26:54 Ventricular premature complex(es) no longer present Electronically Signed On 11-02-2018 9:00:22 CDT by Levy Alcala [email or web address] ��������������������������������������������� <ELECTRONICALLY SIGNED> ���������������������������������������� By: Levy Alcala MD, [facility] ��������������������������������������������� 11/02/18899 2226 25 Levy Alcala MD, [facility] /EPI
[2018-11-02 09:07] LABS: FREE PSA 0.04 ng/mL
[2018-11-02 09:24] LABS: BE(vivo) -0.5 mmol/L (-2 to +3); HCO3 23.7 mmol/L (22.0-26.0); PCO2 37.8 mmHg (35.0-45.0); pH 7.416 (7.360-7.450); sO2 96.2 % (92.0-98.0)
--- NOTE | 2018-11-02 20:19 | NUR ---
SHIFT SUMMARY: VERY MINIMAL PROGRESS. SEE ASSESSMENT FOR DETAILS. CONFUSED, SLURRED SPEECH, RESTLESS, PULLING AT TUBES AND PICK NOSE ENOUGH TO BLEED DESPITE REMBERTO WRIST RESTRAINTS. AFIB, CONVERTED TO SR AFTER LOPRESSOR 5 MG IV. 2L/NC, NPO- FAILED SWALLOW STUDY, INCONTINENT URINE, TURN Q 2HRS AND PRN. PRESENT, UPDATED ON PT STATUS.
--- NOTE | 2018-11-03 03:31 | NUR ---
ASSUMED PT CARE AT 1900. PT DISORIENTED, DROWSY, ORIENTED ONLY TO SELF, RESTLESS. VITAL SIGNS STABLE, ASSESSMENT CHARTED. RESTRAINTS MAINTAINED, PT TENDS TO PICK ON SELF AND TRIED TO DISCONNECT EQUIPEMENT. CIRCULATION ASSESSED, AND INTACT. HR FLUCTUATED BETWEEN 90'S TO 120'S, UNSUSTAINED. EKG OBTAINED TO RULE OUT AFIB. REFER TO CHART FOR EKG READINGS. Q2 TURNS COMPLETED. FREQUENT CHECKS ON PT. PT PROGRESSING SLOWLY TOWARD PLAN OF CARE. WILL CONTINUE TO CLOSELY MONITOR.
[2018-11-03 03:56] VITALS: BP 159/90
[2018-11-03 05:27] LABS: HEMATOCRIT 41.2 % (42.0-52.0); HEMOGLOBIN 13.8 gm/dL (14.0-18.0); MCH 31.4 pg (26.0-34.0); MCHC 33.4 g/dL (28.0-37.0); RBC 4.39 mil/uL (4.50-6.00); RDW 14.2 % (10.5-14.5); WBC 8.8 thou/uL (4.0-11.0)
[2018-11-03 05:56] LABS: ALBUMIN 2.6 g/dL (3.4-5.0); CALCIUM 8.5 mg/dL (8.5-10.1); CREATININE 0.6 mg/dL (0.7-1.3); MAGNESIUM 2.1 mg/dL (1.8-2.4); POTASSIUM 3.3 mmol/L (3.5-5.1); TOTAL BILIRUBIN 0.5 mg/dL (<0.1-1.0); TOTAL PROTEIN 6.5 g/dL (6.4-8.2)
[2018-11-03 07:35] VITALS: BP 127/91
--- NOTE | 2018-11-03 08:07 | EKG ---
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 Borderline repolarization abnormality Baseline wander in lead(s) V2 Compared to ECG 11/01/2018 22:26:28 Electronically Signed On 11-03-2018 8:07:32 CDT by Chance Feldman [email or web address] ��������������������������������������������� <ELECTRONICALLY SIGNED> ���������������������������������������� By: Chance Feldman MD ��������������������������������������������� 11/03/1807 2255 2255 Chance Feldman MD /EPI
--- NOTE | 2018-11-03 10:17 | NUR ---
PICC LINE REMAINS INTACT WITH +BR X3 LUMENS. PT DOES NOT NEED PICC ORDERED TODAY. PAULINO BUSTAMANTE NOTIFIED THAT CURRENT PICC REMAINS INTACT WITH +BR
[2018-11-03 11:45] VITALS: BP 154/78
[2018-11-03 16:15] VITALS: BP 112/60
--- NOTE | 2018-11-03 16:37 | NUR ---
FOLLOWING FOR DC PLANNING. CLINICAL INFO REVIEWED. NO W/E DC PER DR. RODRIGUEZ. THERAPY EVALS ORDERED BUT DEFERRED RN FELT TOO AGITATED, PER PT/OT NOTES. PT WILL LIKELY NEED SKILLED REHAB AT DC AND SPOUSE HAS SNF LIST. CM TO [facility]ERTWO TO COORDINATE DC NEEDS.
--- NOTE | 2018-11-03 17:14 | NUR ---
VITALS STABLE. LUNGS ARE CLEAR TO DIMIHNISHED . ON 02 AT 3 LITERS NASAL CANULA. FAMILY AT BEDSIDE. CONFUSED AND COMABTIVE AT TIMES. IN RESTRAINTS X2 BILAERAL. INCONTINENT AND CHANGED AND TURNED Q 2HOURS PER NURSING. WILL CONTINUE TO ASSESS AND MONITOR PER NURSING. CONCERNS ADDRESSED WITH AND FAMILY PER NURSING
[2018-11-03 20:00] VITALS: BP 166/80
--- NOTE | 2018-11-04 03:02 | NUR ---
ASSUMED CARE FROM DAY SHIFT, PT AWAKE FOLLOW WITH EYES WHEN NAME IS CALLED BUT NO VERBAL REPONSE NOTED , WRIST RESTRAINTS ON DUE TO PT AGITATION AND PT PULLING AT IV LINES AND O2 NC. PT TURNED EVRY 2 HOURS, INCONTINENT OF URINE BUT NO STOOL NOTED. PO MEDICATION WITH APPLESAUCE AND THICKENED WATER GIVEN AND TOLERATED WELL. [place] SHOWS AFIB WITH PVS AND NSR WITH PAC , BP STABLE. THE NIGHT PROGRESS PT LESS AGITATED WHEN TURNED AND RESTAINTS RELEASED WHILE REPOSITIONING . WILL CONINTUE TO MONITOR AND WILL REPORT CHANGES OR ABNORMAL FINDINGS.
[2018-11-04 04:00] VITALS: BP 151/82
[2018-11-04 04:58] LABS: ALBUMIN 2.4 g/dL (3.4-5.0); PHOSPHORUS 3.4 mg/dL (2.5-4.9); POTASSIUM 3.6 mmol/L (3.5-5.1)
[2018-11-04 05:01] LABS: CREATININE 1.8 mg/dL (0.7-1.3)
[2018-11-04 05:07] LABS: CALCIUM 8.3 mg/dL (8.5-10.1)
[2018-11-04 08:00] VITALS: BP 163/45
--- NOTE | 2018-11-04 17:09 | EEG ---
[facility] [address] [place] [address] ELECTROENCEPHALOGRAM Name: ROMY BAGLEY Room #: 250-P ADM IN M.R.#: [id number] ������������������ Admission: 10/30/18 ������������������ Attend Phys: Nhung Jenkins Discharge: ������������������ Date of : 31 Report #: [id number] ����������������������������������������������������������������� [id number] THIS REPORT FOR: //name// CC: Irwin Ivey FAM unknown Nhung Leonard DATE OF SERVICE: 11/03/2018 The patient's EEG was done by placing the electrodes by standard 10-20 system of electrode placement. Both referential and sequential montages were used for recording. Background activity in this patient's EEG is about 8-9 Hz and 30 microvolts. This patient became drowsy that is associated with bilateral slowing and vertex sharp waves. Photic stimulation was unremarkable. Throughout the record, no active epileptiform activity was noticed. IMPRESSION: This patient's EEG is intermixed with theta range slowing on both sides. That is a nonspecific abnormality, which can occur with dementia, encephalopathy, effect of psychotropic medication, etc. Clinical correlation is recommended. ���������������������������������������� <ELECTRONICALLY SIGNED> ���������������������������������������� By: Ata Bernard MD ��������������������������������������������� 11/04/18 1709 1605 [id number] Ata Bernard MD /nt
--- NOTE | 2018-11-04 17:35 | NUR ---
PATIENT ALERT TO SELF ONLY, PAIN CONTROLLED WITH MEDICATION. ON ROOM AIR. TURNED Q2H, CONDOM CATHETER PLACED AFTER FAILED ATTEMPT TO GET URINE ANALYSIS. FAMILY UPDATED ON NEW PATIENT ROOM. REPORT CALLED TO ONCOMING NURSE. NO SIGNS OF ACUTE DISTRESS NOTED AT THIS TIME. PATIENT TRANSFERRED TO CCU.
[2018-11-04 19:57] VITALS: BP 168/92
[2018-11-05 06:00] VITALS: BP 152/102
[2018-11-05 06:52] LABS: ALBUMIN 2.4 g/dL (3.4-5.0); CALCIUM 8.6 mg/dL (8.5-10.1); PHOSPHORUS 3.9 mg/dL (2.5-4.9); POTASSIUM 3.8 mmol/L (3.5-5.1)
[2018-11-05 06:54] LABS: CREATININE 3.8 mg/dL (0.7-1.3)
--- NOTE | 2018-11-05 07:26 | NUR ---
ASSUME CARE 1900.PT VERU AGITATED AND CONFUSED. RESPONDS TO NAME BUT SPEECH IS VERY SLURRED AND INCOMPREHENSIBLE. DIFFCULT TO ASSESS LOC OR WHETHER PT IS IN PAIN. HIGHLY INCONTINENT OF URINE. MOVES BELF IN BED AND ON SOFT WRIST RESTRAINTS DUE TO AGITATION/POSSIBILITY OF HURTING SELF. ASSESSMENT CHARTED. PLAN IS TO [place] FOR INFECTION AND PLACE PT ON RIGHT ANTBIOTIC/BRING PT BACK TO BASELINE LOC. NO SLEEP NOTED THROUGH THE NIGHT. AGITATION INCREASES WITH INCONTINENCE. WILL CONTINUE O MONITOR AND FOLLOW WIHT POC
[2018-11-05 07:30] VITALS: BP 170/86
[2018-11-05 10:03] LABS: BE(vivo) -6.3 mmol/L (-2 to +3); HCO3 18.9 mmol/L (22.0-26.0); PCO2 36.6 mmHg (35.0-45.0); PO2 62.6 mmHg (80.0-100.0)
[2018-11-05 10:04] LABS: sO2 90.6 % (92.0-98.0)
[2018-11-05 11:35] VITALS: BP 178/101
[2018-11-05 11:44] LABS: URINE BILIRUBIN NEGATIVE (Negative); URINE BLOOD 3+ (Negative); URINE CLARITY CLEAR; URINE COLOR YELLOW; URINE GLUCOSE-RANDOM* NEGATIVE (Negative); URINE KETONES NEGATIVE (Negative); URINE LEUKOCYTES-REFLEX TRACE (Negative); URINE NITRITE-REFLEX NEGATIVE (Negative); URINE PROTEIN (DIPSTICK) NEGATIVE (Negative); URINE SPECIFIC GRAVITY <= 1.005 (1.005-1.035); URINE UROBILINOGEN 0.2 E.U./dl (0.2-1.0)
[2018-11-05 11:50] LABS: URINE CREATININE-RANDOM* 18.2 mg/dL; URINE POTASSIUM-RANDOM* 8.7 mmol/L
[2018-11-05 11:53] LABS: BACTERIA-REFLEX None Seen /HPF (None Seen); CRYSTALS None Seen /LPF (None Seen); HYALINE CASTS 0-3 Few /LPF (None Seen); MUCUS 0-3 Light strn/LPF (None Seen); SQUAMOUS 0-3 Few /LPF (0-3); URINE RBC 3-10 Few /HPF (0-2); URINE WBC-REFLEX 0-5 Rare /HPF (0-5)
[2018-11-05 14:10] LABS: ABSOLUTE NEUTROPHILS 7.9 thou/uL (1.4-8.2); BASOPHILS 0.8 % (0.0-2.0); EOSINOPHILS 0.3 % (0.0-3.0); HEMATOCRIT 40.8 % (42.0-52.0); HEMOGLOBIN 13.3 gm/dL (14.0-18.0); LYMPHOCYTES 10.3 % (24.0-44.0); MCH 30.8 pg (26.0-34.0); MCHC 32.6 g/dL (28.0-37.0); MCV 94.3 fL (80.0-100.0); MONOCYTES 8.6 % (1.0-8.0); PLATELET COUNT 164 thou/uL (150-400); RBC 4.32 mil/uL (4.50-6.00); RDW 14.6 % (10.5-14.5); WBC 9.8 thou/uL (4.0-11.0)
--- NOTE | 2018-11-05 15:24 | NUR ---
ASSUMED CARE AT O700, SHIFT ASSESSMENT DONE, PT IS CONFUSED, DISORINETED, ON SOFT WRIST RESTRAINTS. DR PRUITT WAS NOTIFIED ABOUT PT CONDITION. ORDER RECEIVED TO PUT A FISHER, PERFORMED AND SAMPLE SENT FOR UA. ALSO WANTED A NG TUBE IN BUT PT WAS UNCOPERATIVE AND WAS UNABLE TO PUT IN IT. DR PRUITT IS OK WITHOUT THE NG TUBE FOR NOW.
[2018-11-05 15:30] VITALS: BP 183/105
[2018-11-05 19:39] VITALS: BP 195/112
[2018-11-05 21:00] VITALS: BP 155/99
[2018-11-06] VITALS (8 sets, daily range): BP systolic 137–182; BP diastolic 68–106
--- NOTE | 2018-11-06 04:18 | NUR ---
ASSUMED PT CARE AT 1900. PT DISORIENTED X4, AGITATED AND VERY RESTLESS. VITAL SIGNS STABLE, ASSESSMENT CHARTED. PT UNABLE TO VERBALIZE PAIN, HOWEVER DID NOT SEEM TO BE IN ANY PAIN. RESTRAINTS MAINTAINED, FREQUENT CHECKS. CLOSE TO NURSING STATION, FALL PRECAUTIONS IN PLACE. PROGRESSING TOWARD PLAN OF CARE, POSSIBLE LUMBAR PUNCTURE IN AM. WILL CONTINUE TO CLOSELY MONITOR.
[2018-11-06 08:04] LABS: ALBUMIN 2.5 g/dL (3.4-5.0); CALCIUM 8.6 mg/dL (8.5-10.1); CREATININE 4.5 mg/dL (0.7-1.3); POTASSIUM 3.5 mmol/L (3.5-5.1); TOTAL BILIRUBIN 0.4 mg/dL (<0.1-1.0); TOTAL PROTEIN 6.5 g/dL (6.4-8.2)
--- NOTE | 2018-11-06 11:29 | NUR ---
If able to place a feeding tube, recommend Jevity 1.5 goal 55ml/hr. If remains on tpn, needs goal of 80ml/hr
--- NOTE | 2018-11-06 14:18 | NUR ---
Per phys patient/family request transfer to [facility]. they are agreeable to [facility], [facility], [place] but not [place]. Faxed information, face sheet and copy of ins cards to [facility]. Sp with transfer team Betty who reports after phys sp, patient accepted via Dr Gloria Villegas. He is placed on wait list for [facility]. Updated patients family, and niece at bedside.
--- NOTE | 2018-11-06 19:53 | NUR ---
PATIENT CARE ASSUMED, ASSESSMENT CHARTED, PATIENT CONFUSED AND AGITATED, FAMILY AT BEDSIDE REQUESTING TO TALK TO DOCTOR ABOUT PATIENT CONDITION. FAMILY HAS DECIDED TO TRANSFER PATIENT TO [facility].
[2018-11-07 03:05] VITALS: BP 137/86
[2018-11-07 04:00] VITALS: BP 139/70
--- NOTE | 2018-11-07 04:08 | NUR ---
RECEIVED PT'S CARE AROUND 192; PT. ON BED; RESTLESS; RESTRAINTS ON; NO ANSWER BACK TO NAME; DROWSY; DURING ASSESSMENT PT. ON BED; EYES CLOSED; RESTLESS; OPEN EYES WHEN TOUCH; NO ANSWER BACK TO NAME; NO APPARENT PAIN; WRIST ASSESSED; NO REDNESS AROUND IT; BRUISING PRESENT OVER FOREARM; SCARS; HS MEDICATION GIVEN; REPOSITIONED ON BED; VS WNL; WHEEZING PRESENTS; O2 96%; ABLE TO REST MOST OF THE NIGHT WITH EYES CLOSED; AFTER 0300 PT. CALM; RESTING; MONITORING; ASSESSMENT CHARGED; FOLLOWING POC; WILL PASS ON REPORT.
[2018-11-07 06:30] LABS: ALBUMIN 2.3 g/dL (3.4-5.0); CALCIUM 8.5 mg/dL (8.5-10.1); CREATININE 4.5 mg/dL (0.7-1.3); MAGNESIUM 1.9 mg/dL (1.8-2.4); PHOSPHORUS 4.2 mg/dL (2.5-4.9); POTASSIUM 3.4 mmol/L (3.5-5.1)
[2018-11-07 06:31] LABS: CALCIUM 8.3 mg/dL (8.5-10.1); CREATININE 4.3 mg/dL (0.7-1.3); POTASSIUM 3.4 mmol/L (3.5-5.1)
[2018-11-07 07:55] VITALS: BP 166/111
--- NOTE | 2018-11-07 10:02 | NUR ---
ASSUMED CARE OF PT FOR DAY SHIFT, MADE SOME MOVEMENT, UNDID RESTRAINTS FOR EASE AND COMFORT AROUND SHIFT CHANGE AND AGAIN AT 0950. PT NODDED HEAD ONCE YET NURSE UNSURE IF THIS IS IN RESPONSE TO QUESTIONS. KEEPS EYES CLOSED EXCEPT FOR WHEN I TURNED ON WESTERNS. RETRIEVED MOUTH SWABS, ACCU CHECKS Q 6H FOR TPN, LAB DRAWS UPCOMING AND K+ TO BE HUNG, WILL WAIT ONE HOUR AFTER SECOND BAG TO TAKE LABS FROM R PICC LINE. WILL CONTINUE TO MONITOR. PT IS ON 1L 94-96%, SINCE PT IS LETHARGIC WILL KEEP ON. GAVE REPORT TO ABRAM Martinez/[facility] [place] TEAM.
[2018-11-07 12:05] VITALS: BP 158/80
--- NOTE | 2018-11-07 13:28 | NUR ---
spoke with [facility] transfer machine operator this am and now, no beds avail. Updated .
[2018-11-07 16:15] VITALS: BP 147/70
--- NOTE | 2018-11-07 16:45 | NUR ---
TO TRANSFER PT TO [facility] SHOULD THIS OCCUR DURING EVENING SHIFT THE TWO TRANSFER SHEETS ARE ON THE FRONT OF THE CHART. ON IS TRANSFER FORM, FILL OUT 3. A, B, AND C. GET A D/C ORDER, NOT SUMMARY, FROM HOSPITALIST VIA TELEPHONE ORDER, AND RN SIGNS. COPY AND PLACE IN OUR CHART, ORIGINAL IN PT'S D/C PAPERWORK. THE SECOND FORM IS A NON-EMERGENT AMB TRANSFER FORM. ADD IN THE DATE HE'S TRANSFERRING, AND WHICH FACILITY, FAX TO THE PHONE NUMBER AT THE TOP OF FORM, WAIT 15 MINUTES, AND CALL THE NUMBER AT THE TOP OF THE FORM TO STATE WE NEED TO SET UP AMB TRANSPORT. CALL [facility] IF ANY QUESTIONS. COPY IN CHART, ORIGINAL WITH PT'S D/C PAPERWORK. LAST MOST IMPORTANT ACTION IS TO CALL THE SPOUSE AT NUMBER PROVIDED IN CHART WELL HER CELL WHICH IS [phone]
[2018-11-07 17:07] LABS: COMPLEMENT-C4 21 mg/dL (14-44)
--- NOTE | 2018-11-07 18:47 | NUR ---
RESTRAINTS: COMM W/DR. PICKERING TO ASK FOR ORDER TO CONTINUE
[2018-11-07 20:00] VITALS: BP 163/89
[2018-11-08] VITALS (10 sets, daily range): BP systolic 140–180; BP diastolic 84–108
--- NOTE | 2018-11-08 04:05 | NUR ---
RECEIVED PT'S AROUND 1900; PT. ON BED; ON RESTRAINTS; RESTING WITH EYES CLOSED; DURING ASSESSMENT AWAKE; ALERT; ABLE TO ANSWER TO YES/NO QUESTIONS BY NODDING HEAD; NODD HEAD FROM RIGHT TO LEFT WHEN ASKED IF HAVE PAIN; NODD HEAD UP & DOWN WHEN ASK IF PT. IS OK?; HS MEDICATION GIVEN; NO RESTLESS; TURNING FROM SIDE TO SIDE; BLOO SUGAR CHECK AT MIDNIGHT; CHECK CHARTING; PT. AWAKE & ALERT AFTER 0200; DROWSY FROM TIME TO TIME; THROUGH THE NIGHT CALM; NO PICKING AT FISHER OR PICC LINE; LOOSE RESTRAINS; AT 0200 02 SAT ASSESSED; 96% ON RA; 02 TITRATE; AT 0414 02 SAT 95% ON RA; MONITORING; ASSESSMENT CHARGED; FOLLOWING POC; PER MORNING NURSING REPORT; PT. WAITING FOR BED TO BE TRANSFER TO AN OUTPATIENT HOSPITAL; NO CALL RECEIVED THROUGH THE NIGHT; WILL PASS ON REPORT;
[2018-11-08 06:06] LABS: HEMATOCRIT 39.5 % (42.0-52.0); HEMOGLOBIN 13.1 gm/dL (14.0-18.0); MCH 31.3 pg (26.0-34.0); MCHC 33.3 g/dL (28.0-37.0); MCV 94.2 fL (80.0-100.0); RBC 4.19 mil/uL (4.50-6.00); RDW 14.6 % (10.5-14.5); WBC 8.4 thou/uL (4.0-11.0)
[2018-11-08 06:23] LABS: ALBUMIN 2.4 g/dL (3.4-5.0); CALCIUM 8.7 mg/dL (8.5-10.1); CREATININE 3.9 mg/dL (0.7-1.3); MAGNESIUM 1.9 mg/dL (1.8-2.4); PHOSPHORUS 3.6 mg/dL (2.5-4.9); POTASSIUM 3.5 mmol/L (3.5-5.1)
--- NOTE | 2018-11-08 09:45 | NUR ---
Spoke with and alerted [facility] sales order coordinator reports [facility]. Discussed with inquiring into other hospitals like [facility] and declined they really want [facility], his PCP is affiliated as well. 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 reports in his confusion he responds more to "Doc." Updated RN.
--- NOTE | 2018-11-08 16:39 | NUR ---
ASSUMED CARE PT AT SHIFT CHANGE. ASSESSMENTS CHARTED. PT AWAKE THIS SHIFT, CONFUSED, UNABLE TO FOLLOW COMMANDS. SPOUSE AT BEDSIDE THROUGHOUT SHIFT. PT REMAINS NPO. TPN CONTINUES. RESTRAINTS REMOVED BY NOC NURSE, RESTRAINTS HAVE REMAINED OFF. PT RESTLESS THIS AM, PULLED ON FISHER CATHETER, REORIENTED PT AND ABLE TO CALM PT. PT HAS NOT PULLED ON ANY TUBES SINCE. URINE BLOOD TINGED THIS AFTERNOON, CATHETER EMPTIED AND IS NOW CLEAR AND YELLOW. FALL PRECAUTIONS REMAINED IN PLACE THROUGHOUT SHIFT, FREQUENT ROUNDING ON PT. PT IN NO APPARENT DISTRESS. CONTINUING TO CHECK ON PT AND ASSESS NEEDS.
--- NOTE | 2018-11-08 23:20 | NUR ---
ASSUMED PT CARE AT 1900. PT DISORIENTEDX4, VITAL SIGNS STABLE, ASSESMENT CHARTED. PT HAD A TEMP OF 100.9, NATURAL GAS INSPECTOR CALLED, TYLENOL SUPPOSITORY GIVEN. [facility] TRANSFER CALLED FOR AN AVAILABLE BED. NATURAL GAS INSPECTOR NOTIFIED, DISCHARGE ORDERS RECIEVED. SPOUSE NOTIFIED. CALLED REPORT TO NURSE AT [facility] AT ABOUT 2117. TRANSPORT WAS NOTIFIED WELL. PT LEFT UNIT AT ABOUT 2300. PT STILL HAD A FEVER AT DISCHARGE. OTHER VITAL SIGNS REMAINED STABLE.
[2018-11-09 15:08] LABS: KAPPA FREE LIGHT CHAINS 74.1 mg/L (3.3-19.4); KAPPA/LAMBDA RATIO 2.25 (0.26-1.65)
[2018-11-10 15:08] LABS: ANA INTERPRETATION Negative (Negative); COMPLEMENT-C3 95 mg/dL (82-167)
== END 2018-11-08 23:00 | disposition short-term general hospital (02) | DRG 682 ==
LOC: ER 16:38 → EROBS 23:15 → 4E 23:15 → ICU 10-30 09:28 → 4E 10-30 11:09 → ICU 10-30 13:51 → 2N 11-04 17:53
PROVIDERS: Emergency Medicine; Hospitalist; Internal Medicine; Internal Medicine Infectious Disease; Internal Medicine Nephrology; Nurse Practitioner Acute Care; Specialist; ADMIT Hospitalist
PROC: B244ZZZ Ultrasonography of Right Heart (ICD-10-PCS; principal; 2018-10-30)
PROC: 02H633Z Insertion of Infusion Device into Right Atrium, Percutaneous Approach (ICD-10-PCS; principal; 2018-10-30)
DX: N17.0 Acute kidney failure with tubular necrosis (principal); G93.41 Metabolic encephalopathy; J96.01 Acute respiratory failure with hypoxia; E43 Unspecified severe protein-calorie malnutrition; J98.11 Atelectasis; I69.354 Hemiplegia and hemiparesis following cerebral infarction affecting left non-dominant side; M62.82 Rhabdomyolysis; E87.0 Hyperosmolality and hypernatremia; E87.2 Acidosis; F05 Delirium due to known physiological condition; F32.9 Major depressive disorder, single episode, unspecified; F41.9 Anxiety disorder, unspecified; F01.50 Vascular dementia, unspecified severity, without behavioral disturbance, psychotic disturbance, mood disturbance, and anxiety; I10 Essential (primary) hypertension; E78.5 Hyperlipidemia, unspecified; R13.10 Dysphagia, unspecified; I95.89 Other hypotension; I73.9 Peripheral vascular disease, unspecified; G47.33 Obstructive sleep apnea (adult) (pediatric); E55.9 Vitamin D deficiency, unspecified; I25.10 Atherosclerotic heart disease of native coronary artery without angina pectoris; Z98.41 Cataract extraction status, right eye; K21.9 Gastro-esophageal reflux disease without esophagitis; Z68.32 Body mass index [BMI] 32.0-32.9, adult; Z98.42 Cataract extraction status, left eye; Z87.891 Personal history of nicotine dependence; Z85.828 Personal history of other malignant neoplasm of skin; Z79.82 Long term (current) use of aspirin; Z79.899 Other long term (current) drug therapy; Z82.0 Family history of epilepsy and other diseases of the nervous system; Z82.49 Family history of ischemic heart disease and other diseases of the circulatory system
CPT/HCPCS: 10081; 10203; 27000